=== PATIENT | female | born 1935 | race Caucasian/White ===

== ENCOUNTER 2017-05-04 16:40 | Emergency (ER) | payer MEDICARE, OTHER ==
--- NOTE | 2017-05-04 18:06 | RAD ---
CT head without contrast. CT cervical spine without contrast TECHNIQUE: 5 m axial noncontrast imaging skull base to vertex. Helical noncontrast imaging of the cervical spine. HISTORY: Fall, headache, neck pain. CT head findings: Generalized brain atrophy. Cerebral white matter hypoattenuation likely chronic microvascular ischemic gliosis. No intracranial hemorrhage, mass, hydrocephalus, extra-axial fluid collections or infarction. Right occipital scalp soft tissue swelling. Orbits, paranasal sinuses, mastoids and bones are unremarkable. Sphenoid sinus fluid. IMPRESSION: No acute intracranial CT abnormality. Sphenoid sinus fluid could be sinusitis. CT cervical spine findings: Streak artifact from dental hardware through the upper cervical spine may decrease sensitivity to detect subtle hairline fractures of the C1 and C2 levels however diagnostic information still remains. Craniocervical junction intact. C1-C2 articulation and C2 odontoid intact. Osteoarthritis of the C1-C2 articulation is present. Cervical vertebral body height and alignment intact. Subtle T2 vertebral body transverse linear sclerotic focus and mild deformity of the superior endplate without a lucent fracture cleft. This could represent an age-indeterminate T2 compression fracture. No fracture of the cervical spine. Scattered disc bulges and protrusions with probable severe spinal canal stenosis may increase the risk of spinal cord impingement at C3-C4 due to large disc protrusion. Multilevel neural foraminal stenoses. Hypervascular left thyroid lobe nodule measuring 3 cm. Lung apices unremarkable. IMPRESSION: 1. No acute osseous injury of the cervical spine. 2. Cervical disc disease as described above. 3. Age-indeterminate mild compression fracture of the T2 vertebral body as described above. 4. 3 cm hypervascular left thyroid lobe nodule. Neoplasm is not excluded. Exposure: One or more of the following individualized dose reduction techniques were utilized for this examination: 1. Automated exposure control 2. Adjustment of the mA and/or kV according to patient size 3. Use of iterative reconstruction technique Electronically signed by: Jose Richardson MD (05/04/2017 6:03 PM) [facility]
[2017-05-04] MEDS ORDERED: DIPHTH,PERTUSS(ACELL),TET TOX 0.5 ML DISP.SYRIN. VAX IM ONE (18:25)
[2017-05-04 18:45] LABS: BILIRUBIN,URINE NEG (NEG); CLARITY,URINE HAZY; COLOR,URINE YELLOW; GLUCOSE,URINE NEG (NEG); UROBILINOGEN,URINE 0.2 mg/dL (0.2 mg/dL)
[2017-05-04 18:46] LABS: BACTERIA,URINE MANY /HPF (0-FEW); NITRITE,URINE NEG (NEG); SQUAMOUS EPITHELIAL CELL,UR FEW /LPF; WBC,URINE >40 /HPF (0-4)
--- NOTE | 2017-05-04 20:20 | PHYS DOC ---
Past History Past Medical History: CAD, Constipation, Depression, UTI, Other Adult General Chief Complaint Chief Complaint: MECHANICAL FALL HPI HPI 81-year-old female lives in assisted living and walks with a walker now brought in by EMS after a fall from standing. Patient leaned over too far and fell striking her right scalp and right buttock. She has some mild neck soreness. No loss of consciousness. She's been at her baseline mental status since. She does have some scalp swelling. Patient suffered a skin tear right forearm and her tetanus is not up-to-date. She has previously fractured right shoulder in the distant past but did not injure that area today. Her left shoulder is sore from the fall. She has no chest pain or shortness of breath. No abdominal pain or spinal pain. No extremity injury Review of Systems Review of Systems Constitutional: Denies fever or chills [] Eyes: Denies change in visual acuity, redness, or eye pain [] HENT: Denies nasal congestion or sore throat [] Respiratory: Denies cough or shortness of breath [] Cardiovascular: No additional information not addressed in HPI [] GI: Denies abdominal pain, nausea, vomiting, bloody stools or diarrhea [] : Denies dysuria or hematuria [] Musculoskeletal: Denies back pain or joint pain [] Integument: Denies rash or skin lesions [] Neurologic: Denies headache, focal weakness or sensory changes [] Endocrine: Denies polyuria or polydipsia [] Current Medications Current Medications Current Medications Medications (Trade) Dose Ordered Sig/William Start Time Stop Time Status Last Admin Dose Admin Diphtheria/ Tetanus/Acell Pertussis (Boostrix) 0.5 ml ONCE ONCE 05/04/17 18:25 05/04/17 18:26 DC 05/04/17 18:29 0.5 ML Allergies Allergies Allergies Coded Allergies Type Severity Reaction Last Updated Verified Penicillins Allergy Unknown 05/04/17 Yes Sulfa (Sulfonamide Antibiotics) Allergy Unknown 05/04/17 Yes aspirin Allergy Unknown 05/04/17 Yes cefdinir Allergy Unknown 05/04/17 Yes ciprofloxacin Allergy Unknown 05/04/17 Yes sulfamethoxazole Allergy Unknown 05/04/17 Yes tramadol Allergy Unknown 05/04/17 Yes trimethoprim Allergy Unknown 05/04/17 Yes Physical Exam Physical Exam Normocephalic no bony tenderness or crepitus. Soft tissue swelling with hematoma right scalp. No Esteban sign. No facial tenderness or instability. Nontender C-spine with normal painless range of motion. No chest wall tenderness no spinal tenderness nontender stable pelvis. Mild buttock soft tissue tenderness with no ecchymosis or hematoma. No sacral or coccyx tenderness. Normal extremities with painless range of motion except mild soft tissue tenderness left shoulder area but no swelling ecchymosis or bony tenderness Constitutional: Well developed, well nourished, no acute distress, non-toxic appearance. [] HENT: Normocephalic, as above bilateral external ears normal, oropharynx moist, no oral exudates, nose normal. [] Eyes: PERRLA, EOMI, conjunctiva normal, no discharge. [] Neck: Normal range of motion, no tenderness, supple, no stridor. [] Cardiovascular:Heart rate regular rhythm, no murmur [] Lungs & Thorax: Bilateral breath sounds clear to auscultation [] Abdomen: Bowel sounds normal, soft, no tenderness, no masses, no pulsatile masses. [] Skin: Warm, dry, no erythema, no rash. [] Back: No tenderness, no CVA tenderness. [] Extremities: No tenderness, no cyanosis, no clubbing, ROM intact, no edema. [] Neurologic: Alert and oriented X 3, normal motor function, normal sensory function, no focal deficits noted. [] Psychologic: Affect normal, judgement normal, mood normal. [] Current Patient Data Vital Signs Vital Signs Date Time Temp Pulse Resp B/P (MAP) Pulse Ox O2 Delivery O2 Flow Rate FiO2 05/04/17 18:03 93 18 107/51 (69) 97 05/04/17 16:40 98.3 Room Air Lab Results Laboratory Tests Test 05/04/17 17:55 Urine Collection Type U cath Urine Color Yellow Urine Clarity Hazy Urine pH 5.5 Urine Specific [place] <=1.005 Urine Protein Neg (NEG-TRACE) Urine Glucose (UA) Neg mg/dL (NEG) Urine Ketones (Stick) Neg mg/dL (NEG) Urine Blood Mod (NEG) Urine Nitrite Neg (NEG) Urine Bilirubin Neg (NEG) Urine Urobilinogen Dipstick 0.2 mg/dL (0.2 mg/dL) Urine Leukocyte Esterase Large (NEG) Urine RBC 11-20 /HPF (0-2) Urine WBC >40 /HPF (0-4) Urine Squamous Epithelial Cells Few /LPF Urine Bacteria Many /HPF (0-FEW) EKG EKG [] Radiology/Procedures Radiology/Procedures Chest x-ray chronic changes previous right shoulder fracture no acute disease. Interpreted by me Left shoulder x-ray chronic changes no fracture no acute disease interpreted by me[] X-ray of pelvis chronic changes no acute disease no displaced fracture interpreted by me Course & Med Decision Making Course & Med Decision Making Pertinent Labs and Imaging studies reviewed. (See chart for details) Signs and symptoms consistent with closed head injury with scalp hematoma. Ice applied. Skin tear right forearm. Tetanus updated with T gap. No spinal tenderness. X-rays of left shoulder negative and mild soft tissue tenderness consistent with contusion. She has normal range of motion felt difficulty on reexam. Right shoulder has an old fracture visible on the chest x-ray, of which patient is aware and is not hurting at all today. Chest and pelvis x-rays unremarkable interpreted by me. On reevaluation patient continues to be extremely cheerful smiling normal and painless use and range of motion of her neck.. Incidental finding of left thyroid lobe nodule 3 cm noted on the CAT scan. Was a hypervascular lesion and radiology, neoplasm is not excluded. This was discussed at length with patient and her family and they're aware to follow- up with her primary care doctor to work a straight further workup and definitive diagnosis for treatment as needed. Family and patient are specifically where the possibility of cancer in the critical importance of close follow-up. No further workup or treatment indicated at this time patient and family agree with outpatient follow-up and strict return precautions given. copy of CT results dispensed w pt/family. Dragon Disclaimer Dragon Disclaimer This chart was dictated in whole or in part using Voice Recognition software in a busy, high-work load, and often noisy Emergency Department environment. It may contain unintended and wholly unrecognized errors or omissions. Departure Departure: Impression: Primary Impression: Closed head injury Additional Impressions: Scalp hematoma Cervical strain Thyroid mass of unclear etiology Multiple contusions Skin tear Urinary tract infection Referrals: KEILA OLIVER (PCP) Patient Instructions: Head Injury, Adult Additional Instructions: You've suffered a minor head injury from her fall today. It appears he also have some mild neck strain so be aware your neck may be mildly sore. He did not have any signs of injury to or bleeding of your brain. CAT scan showed no signs of fracture of your neck. Your x-rays of the chest and left shoulder showed no signs of fracture but on the chest [id number] right shoulder fracture was visible. Thankfully you did not injure this area today so further imaging was not necessary. He did have a hematoma of your scalp which means swelling and bleeding in the scalp. Apply ice to this as often as possible for the next day. You have evidence of other mild contusions including her left shoulder area and your buttock. X-ray of your pelvis was unremarkable and you have no signs of fracture in that area. As we discussed at length, the CAT scan of your neck did show a 3 cm mass of your left thyroid lobe. I have given you a copy of your CAT scan results regarding this mass so that you can follow-up with your primary care doctor to plan further workup for definitive diagnosis specifically to rule out the possibility of cancer. Be sure to follow up promptly and go through the steps prescribed to get this fully evaluated. Your urinalysis is consistent with infection. We've given you a prescription for Macrobid and you been given your first dose already tonight. As I'm sure your aware, Macrobid is a medicine you take twice a day in this case for 14 days. A urine culture will be pending which your doctor can follow to determine sensitivity and guide continued treatment. Return immediately for new severe or worsening symptoms Scripts Nitrofurantoin Monohyd/M-Cryst (MACROBID 100 MG CAPSULE) 100 Mg Capsule 1 CAP PO BID for 14 Days, #28 CAP Prov: DEVORAH RICHARDSON MD 05/04/17 Problem Qualifiers DEVORAH RICHARDSON MD May 04, 2017 20:20
[2017-05-04] MEDS ORDERED: NITR100C62 PO (20:44)
[2017-05-04] MEDS ORDERED: NITROFURANTOIN MONOHYD/M-CRYST 100 MG CAPSULE. PO ONE (21:00)
[2017-05-04 21:15] VITALS: BP 113/54
--- NOTE | 2017-05-05 08:56 | RAD ---
Portable left shoulder, 3 views, 05/04/2017: History: Fall, injury The bony structures are demineralized. No fracture or dislocation is identified. Mild degenerative changes are noted. IMPRESSION: No acute bony abnormality is detected.
--- NOTE | 2017-05-05 09:00 | RAD ---
Pelvis, single view, 05/04/2017: History: Fall, pain The bony structures are demineralized. No fracture is identified. The hip joints are well-maintained with only mild marginal spurring. Moderate degenerative change is noted in the lower lumbar spine. IMPRESSION: 1. Demineralization. 2. No acute bony abnormality is detected.
--- NOTE | 2017-05-05 09:43 | RAD ---
AP chest, 05/04/2017: History: Fall The heart size and pulmonary vascularity are normal. No pulmonary infiltrates are seen. There is no evidence of pleural fluid or pneumothorax. Moderate spurring is present in the spine. IMPRESSION: No acute cardiopulmonary abnormality is detected.
== END 2017-05-04 21:30 | disposition home or self-care (01) ==
LOC: ER 16:40
DX: S00.03XA Contusion of scalp, initial encounter (principal); S16.1XXA Strain of muscle, fascia and tendon at neck level, initial encounter; S40.012A Contusion of left shoulder, initial encounter; S30.0XXA Contusion of lower back and pelvis, initial encounter; E07.9 Disorder of thyroid, unspecified; I25.10 Atherosclerotic heart disease of native coronary artery without angina pectoris; N39.0 Urinary tract infection, site not specified; Z88.0 Allergy status to penicillin; Z88.2 Allergy status to sulfonamides; Z88.1 Allergy status to other antibiotic agents; W18.09XA Striking against other object with subsequent fall, initial encounter; Y93.89 Activity, other specified; Y99.8 Other external cause status; Y92.89 Other specified places as the place of occurrence of the external cause
CPT/HCPCS: 51702; 70450; 71010; 72125; 72170; 73030; 81001; 87086; 87186; 90471; 90715; 99285-25

== ENCOUNTER 2018-08-20 10:00 | Inpatient (IN) | payer MEDICARE, OTHER ==
[~2018-08-20] VITALS: Ht 149.9 cm; Wt 76.7 kg
[~2018-08-20 10:00] MED LIST: NITR100C62 PO
[2018-08-20 11:05] VITALS: BP 112/52
[2018-08-20 11:09] VITALS: BP 95/60
[2018-08-20 11:11] VITALS: BP 87/45
[2018-08-20] MEDS ORDERED: LIDO700A39 TP (11:39)
[2018-08-20] MEDS ORDERED: SERT100T PO (11:39)
[2018-08-20] MEDS ORDERED: GABA-585 PO (11:39)
[2018-08-20] MEDS ORDERED: BUME2TAB PO (11:39)
[2018-08-20] MEDS ORDERED: SPIR100T4 PO (11:39)
[2018-08-20] MEDS ORDERED: PANT40TA5 PO (11:39)
[2018-08-20] MEDS ORDERED: MIRT30TA PO (11:39)
[2018-08-20] MEDS ORDERED: ERGO500027 PO (12:37)
[2018-08-20] MEDS ORDERED: ONDA4TAB7 PO (12:37)
[2018-08-20] MEDS ORDERED: LOPE2CAP PO (12:37)
[2018-08-20] MEDS ORDERED: BUDE3CAP15 PO (12:37)
[2018-08-20] MEDS ORDERED: DICL100G18 TP (12:37)
[2018-08-20] MEDS ORDERED: ACET500T68 PO (12:37)
[2018-08-20] MEDS ORDERED: TRIA15CR50 TP (12:37)
[2018-08-20] MEDS ORDERED: LORA10TA3 PO (12:47)
[2018-08-20] MEDS ORDERED: NYST15CR TP (12:47)
[2018-08-20] MEDS ORDERED: METO2.5T PO (12:47)
[2018-08-20] MEDS ORDERED: MULT-245 PO (12:47)
[2018-08-20] MEDS ORDERED: FLUT15.88 NS (12:47)
[2018-08-20] MEDS ORDERED: RIVA10TA PO (12:47)
[2018-08-20 14:19] LABS: BILIRUBIN,URINE NEG (NEG); CLARITY,URINE TURBID; COLOR,URINE STRAW; GLUCOSE,URINE NEG (NEG); NITRITE,URINE POS (NEG); UROBILINOGEN,URINE 0.2 mg/dL (0.2 mg/dL)
[2018-08-20 14:20] LABS: BACTERIA,URINE MOD /HPF (0-FEW); SQUAMOUS EPITHELIAL CELL,UR OCC /LPF; WBC,URINE >40 /HPF (0-4)
[2018-08-20 14:32] LABS: HEMATOCRIT 30.1 % (36.0-47.0); HEMOGLOBIN 9.1 g/dL (12.0-15.5); RED BLOOD COUNT 3.71 x10^6/uL (3.50-5.40); RED CELL DISTRIBUTION WIDTH 18.9 % (11.5-14.5)
[2018-08-20 14:50] LABS: ALBUMIN 2.7 g/dL (3.4-5.0); ALBUMIN/GLOBULIN RATIO 0.6 (1.0-1.7); CALCIUM 8.9 mg/dL (8.5-10.1); CREATININE 1.9 mg/dL (0.6-1.0); GFR 25.3; POTASSIUM 4.3 mmol/L (3.5-5.1); TOTAL BILIRUBIN 0.3 mg/dL (0.2-1.0); TOTAL PROTEIN 7.2 g/dL (6.4-8.2)
[2018-08-20] MEDS ORDERED: ACETAMINOPHEN 500 MG TABLET PO PRN (15:00)
[2018-08-20] MEDS ORDERED: NYSTATIN 100,000 UNIT/GM TOPICAL CREAM 15GM TUBE. TP PRN (15:15)
[2018-08-20] MEDS ORDERED: NYSTATIN/TRIAMCIN TOPICAL CREAM 15GM TUBE. TP PRN (15:15)
[2018-08-20] MEDS ORDERED: LOPERAMIDE 2 MG CAPSULE PO PRN (15:15)
[2018-08-20] MEDS ORDERED: TRIAMCINOLONE ACETONIDE 0.1% TOPICAL CREAM 15GM TUBE. TP PRN (15:15)
[2018-08-20] MEDS: IV NORMAL SALINE 1,000ML 1,000 ML IV SCH (15:45)
[2018-08-20 16:09] VITALS: BP 106/68
[2018-08-20] MEDS: DICLOFENAC SODIUM 1% TOPICAL GEL 100GM TUBE. TP SCH ×2 (17:00→22:11)
--- NOTE | 2018-08-20 17:40 | HP ---
ADMIT DATE: 08/20/2018 HISTORY OF PRESENT ILLNESS: The patient is an 82-year-old female patient who was admitted directly from [facility] as she had had recurrent witnessed syncopal episode. The patient has severe bilateral lower extremity edema and she was on Bumex and metolazone as well as spironolactone and apparently, she became clinically dehydrated, although we stopped the diuretics. She continued to have a syncopal episode; in fact, it was a witnessed event by the nursing staff here. When she was admitted, she had positive postural hypertension. She has also noted to have a gluteal decubitus ulcer with marked maceration of the foot, gluteal, sacral, perianal area. She has a history of DVT and PE, she is on Xarelto. She has actually had acute blood loss anemia with a hemoglobin that dropped down to 6.5 and was admitted to [facility] at the end of July, where she has received 1 unit of packed RBCs. The patient denied any chest pain, palpitation, or dizziness, but apparently according to nursing staff, whenever she stands up, she just become unconscious and has to be put back on the bed. She was admitted directly and we did actually check her labs and showed that her BUN and creatinine has definitely risen as her baseline. Her BUN is 53, creatinine 1.9. PAST MEDICAL HISTORY: Showed that the patient is known to have Crohn's disease, degenerative joint disease, recurrent UTIs, history of deep vein thrombosis, pulmonary embolism, depression. She is known also to have L4 compression fracture and actually admitted here to [facility], but she was not found to be suitable for vertebroplasty by the neurosurgeon and interventional radiologist. PAST SURGICAL HISTORY: Significant for appendectomy, cholecystectomy, partial colectomy, colonoscopy, and biopsy. ALLERGIES: SHE IS ALLERGIC TO CIPRO, ASPIRIN, CEFDINIR, PENICILLIN, SULFA, AND TRAMADOL. MEDICATIONS: She is currently on following medications: She is on loratadine 10 mg once a day, nitrofurantoin 100 mg twice a day; rivaroxaban 10 mg, she takes 1-1/2 tablet daily; spironolactone 100 mg daily, diclofenac sodium 100 g 4 times a day, acetaminophen 1000 mg 3 times a day, gabapentin 100 mg at bedtime, mirtazapine 30 mg at bedtime, sertraline 100 mg daily, bumetanide 2 mg daily, metolazone 2.5 mg 3 times a week. She is on Flonase 2 sprays to each nostril once a day. She is also on loperamide 2 mg daily. She is on ondansetron 4 mg every 8 hours, Protonix 40 mg daily, Entocort extended release enteric coated 3 capsules p.o. daily. She is on nystatin cream apply topically 3 times a day, triamcinolone acetonide 15 g applied topically daily, lidocaine 1 patch daily, vitamin D 50,000 international unit once a week. She is on multivitamin 1 tablet daily. FAMILY HISTORY: Positive for hypertension and CVA in her mother and bone cancer in her father. SOCIAL HISTORY: She lives alone. In fact, she was at an assisted living facility; however, she is now in the long-term side of [facility]. She has 2 sons, one of them lives here and the other lives in [place], [place]. She does not smoke, drink alcohol, or use any recreational drugs and she is mostly bed bound, wheelchair bound. REVIEW OF SYSTEMS: As per history of present illness. PHYSICAL EXAMINATION GENERAL: When I examined her today, she was pale, but no jaundice, cyanosis, or thyromegaly. No jugular venous distention. No lower limb edema. VITAL SIGNS: Her heart rate was 92, blood pressure was 112/52 and that dropped down to 95/60 sitting and standing it dropped further to 87/45. Her temperature was 98.5, respiratory rate was 20, and oxygen saturation was 97% on 2 liters of oxygen. HEAD, EYES, EARS, NOSE, THROAT: Showed normocephalic, atraumatic. NECK: Supple. HEART: Showed normal first and second heart sounds with no gallop, rub or murmur. CHEST: Clear to auscultation. No crepitation or rhonchi. ABDOMEN: Distended, soft, nontender. No guarding or rigidity. No organomegaly. All hernial orifices are intact. Bowel sounds normal. NEUROLOGIC: She was awake, alert, responding appropriately. All cranial nerves are intact. EXTREMITIES: She moves her extremities without difficulty. She is mostly bed bound, wheelchair bound. SKIN: She has decubitus ulcer on the left gluteal area together with maceration of the skin of both the gluteal and sacrococcygeal area. LABORATORY WORK: Showed a white cell count of 12,000, hemoglobin 9.1, hematocrit 30, MCV 81, and platelet count of 468,000. Her chemistry showed a serum sodium 139, potassium 4.3, chloride 97, bicarbonate 32, anion gap of 10, BUN of 53, creatinine 1.9, estimated GFR was 25 mL per minute. Her glucose was 205, calcium was 8.9. Total bilirubin, AST, ALT normal. Alkaline phosphatase slightly elevated. Total protein 7.2, albumin 2.7. Urinalysis showed the urine was yellow as straw color, turbid with a pH of 6.5, specific gravity of 1.015. The urine was negative for protein, glucose, ketones, moderate amount of blood, positive for nitrite. There was large amount of leukocyte esterase, 3-5 rbc's, more than 40 wbc's, and moderate amount of bacteria. IMPRESSION AND PLAN: In summary, this is an 82-year-old female patient who was admitted with recurrent episodes of syncope, likely due to over diuresis. She used to have marked bilateral lower extremity edema that has largely subsided. My plan is to send urine for culture and sensitivity. We will arrange for her to have started with a human albumin 3 times a day and also gentle hydration with normal saline at 75 mL per hour. Her H and H is ____ 9.1 and 30 most likely due to hemoconcentration. We will continue with Xarelto. I held all her diuretics including spironolactone. We will check her orthostatic on a daily basis and her lab work also. We will consult the wound care team as well as physical and occupational therapy. LOREN HILARIO MD DR: JAQUELIN/rhys JOB#: [id number] / [id number]
[2018-08-20 20:00] VITALS: BP 93/51
[2018-08-20] MEDS: ALBUMIN HUMAN 25% 50 ML IV SCH (21:49)
[2018-08-20] MEDS: GABAPENTIN 100 MG CAPSULE. PO SCH (21:57)
[2018-08-20] MEDS: NITROFURANTOIN MONOHYD/M-CRYST 100 MG CAPSULE. PO SCH (21:59)
[2018-08-20] MEDS: MIRTAZAPINE 30 MG TABLET PO SCH (21:59)
[2018-08-20 23:04] VITALS: BP 118/72
[2018-08-21] MEDS: IV NORMAL SALINE 1,000ML 1,000 ML IV SCH ×2 (05:06→15:32)
[2018-08-21 06:29] VITALS: BP 100/64
[2018-08-21 06:41] LABS: HEMATOCRIT 24.8 % (36.0-47.0); HEMOGLOBIN 7.8 g/dL (12.0-15.5); RED BLOOD COUNT 3.06 x10^6/uL (3.50-5.40); WHITE BLOOD COUNT 7.9 x10^3/uL (4.0-11.0)
[2018-08-21 06:48] LABS: ALBUMIN 2.6 g/dL (3.4-5.0); ALBUMIN/GLOBULIN RATIO 0.7 (1.0-1.7); CALCIUM 8.3 mg/dL (8.5-10.1); CREATININE 1.6 mg/dL (0.6-1.0); GFR 30.9; POTASSIUM 3.8 mmol/L (3.5-5.1); TOTAL BILIRUBIN 0.2 mg/dL (0.2-1.0); TOTAL PROTEIN 6.2 g/dL (6.4-8.2)
[2018-08-21] MEDS: MULTIVITAMIN with MINERAL TABLET. PO SCH (08:13)
[2018-08-21] MEDS: NITROFURANTOIN MONOHYD/M-CRYST 100 MG CAPSULE. PO SCH ×2 (08:14→22:42)
[2018-08-21] MEDS: RIVAROXABAN 10 MG TABLET. PO SCH (08:14)
[2018-08-21] MEDS: PANTOPRAZOLE 40 MG TABLET. PO SCH (08:15)
[2018-08-21] MEDS: ASCORBIC ACID 500 MG TABLET PO SCH (08:15)
[2018-08-21] MEDS: SERTRALINE 100 MG TABLET. PO SCH (08:15)
[2018-08-21] MEDS: LIDOCAINE (700MG/PATCH) PATCH. TD SCH (08:17)
--- NOTE | 2018-08-21 08:48 | PDOC2 ---
CONSULT Date of Admission DATE: 08/21/18 TIME: 08:44 Reason for Consult: syncope History of Present Illness Ms Michele is an 82 year old female who is admitted with recurrent episodes of syncope. She has additional history of acute renal insufficiency secondary to dehydration, orthostatic hypotension, anemia with recent workup for GIB, and prior history of DVT/PE on anticoagulation. She was being managed for significant lower extremity edema with multiple diuretics and became clinically dehydrated. Diuretics were held but she continued to have orthostatic hypotension and syncopal episodes so was admitted to the hospital for management and consult was called. She reports lightheadedness on standing, denies chest discomfort, dyspnea or palpitations. She reports edema though improved. she denies congestive symptoms. She does report he lightheadedness is improving but this am has complaints of nausea. Past Medical History Crohn's disease, degenerative joint disease, recurrent UTIs, history of deep vein thrombosis, pulmonary embolism, depression, L4 compression fracture not suitable for vertebroplasty, DVT/PE > 6months ago, hypertension, GERD, pneumonia , chronic renal insufficiency, anemia, hemorrhoids Past Surgical History appendectomy, cholecystectomy, partial colectomy, colonoscopy, and biopsy Family History hypertension and CVA in her mother and bone cancer in her father. Social History She lived alone previously at an assisted living facility until recently moved to [facility]. non smoker, no Alcohol, or recreational drugs mostly wheelchair and bed bound but does get up with PT Current Medications Current Medications Diclofenac Sodium (Voltaren) 1 dev QID TP Last administered on 08/20/18at 22:11; Start 08/20/18 at 17:00 Gabapentin (Neurontin) 100 mg HS PO Last administered on 08/20/18at 21:57; Start 08/20/18 at 21:00 Mirtazapine (Remeron) 30 mg QHS PO Last administered on 08/20/18at 21:59; Start 08/20/18 at 21:00 Rivaroxaban (Xarelto) 15 mg DAILY PO Last administered on 08/21/18at 08:14; Start 08/21/18 at 09:00 Sertraline HCl (Zoloft) 100 mg DAILY PO Last administered on 08/21/18at 08:15; Start 08/21/18 at 09:00 Acetaminophen (Tylenol) 1,000 mg PRN TID PRN PO PAIN; Start 08/20/18 at 15:00 Budesonide (Entocort) 9 mg DAILY PO ; Start 08/21/18 at 09:00 Vitamin D (Vitamin D3) 50,000 unit WEEKLY PO ; Start 08/27/18 at 09:00 Fluticasone Propionate (Flonase) 2 spray PRN BID PRN NS ALLERGIES; Start at 09:00 Lidocaine (Lidoderm) 1 patch DAILY TD Last administered on 08/21/18at 08:17; Start 08/21/18 at 09:00 Loperamide HCl (Imodium) 2 mg PRN Q15MIN PRN PO DIARRHEA; Start 08/20/18 at 15: 15 Multivitamins/ Calcium (Thera-M Plus) 1 tab DAILY PO Last administered on at 08:13; Start 08/21/18 at 09:00 Nitrofurantoin Macrocrystals (Macrobid) 100 mg BID PO Last administered on at 08:14; Start 08/20/18 at 21:00 Nystatin/ Triamcinolone Acetonide (Mycolog Ii) 1 dev PRN TID PRN TP YEASTY RASH ; Start 08/20/18 at 15:15; Status Cancel Ondansetron HCl (Zofran Odt) 4 mg Q8HRS PRN PO NAUSEA/VOMITING; Start 08/20/18 at 15:15 Pantoprazole Sodium (Protonix) 40 mg DAILYAC PO Last administered on 08/21/18at 08:15; Start 08/21/18 at 07:30 Spironolactone (Aldactone) 100 mg DAILY PO ; Start 08/21/18 at 09:00; Stop at 09:00; Status DC Triamcinolone Acetonide (Kenalog) 1 dev DAILY PRN TP FACIAL ITCHING; Start 08/20 at 15:15 Nystatin (Mycostatin) 1 dev PRN TID PRN TP YEASTY RASH; Start 08/20/18 at 15:15 Albumin Human 50 ml @ 50 mls/hr TID IV Last administered on 08/20/18at 21:49; Start 08/20/18 at 21:00 Sodium Chloride 1,000 ml @ 75 mls/hr [id number] IV Last administered on 08/21/18at 05:06; Start 08/20/18 at 15:45 Ascorbic Acid (Vitamin C) 500 mg DAILY PO Last administered on 08/21/18at 08:15; Start 08/21/18 at 09:00 Vitamin A/Vitamin D (Vitamin A & D Ointment) 1 dev BID TP ; Start 08/21/18 at 09: 00 Active Scripts Active Macrobid 100 Mg Capsule (Nitrofurantoin Monohyd/M-Cryst) 100 Mg Capsule 1 Cap PO BID 14 Days Reported Xarelto (Rivaroxaban) 10 Mg Tablet 1.5 Tab PO DAILY Metolazone 2.5 Mg Tablet 2.5 Mg PO 3X/WEEK Fluticasone Propionate 15.8 Ml [place].susp 15.8 Ml NS BID PRN Loratadine 10 Mg Tablet 1 Tab PO DAILY PRN Multi Vitamin Daily (Multivitamin) 1 Each Tablet 1 Each PO DAILY Nystatin 15 Gm Cream..g. 1 Dev TP TID PRN Acetaminophen 500 Mg Tablet 2 Tab PO TID PRN Entocort Ec (Budesonide) 3 Mg Capdr...er 3 Cap PO DAILY Voltaren (Diclofenac Sodium) 100 Gm Gel..gram. 1 Gm TP QID Zofran (Ondansetron Hcl) 4 Mg Tablet 1 Tab PO Q8HRS PRN Triamcinolone Acetonide 15 Gm Cream..g. 1 Dev TP DAILY PRN Vitamin D2 (Ergocalciferol (Vitamin D2)) 50,000 Unit Capsule 1 Cap PO WEEKLY Loperamide (Loperamide Hcl) 2 Mg Capsule 1 Mg PO DAILY PRN Gabapentin (Gabapentin) 100 Mg Capsule 100 Mg PO HS Lidocaine 1 Each Adh..patch 1 Each TP DAILY Bumetanide 2 Mg Tablet 1 Tab PO DAILY Spironolactone 100 Mg Tablet 1 Tab PO DAILY Zoloft (Sertraline Hcl) 100 Mg Tablet 1 Tab PO DAILY Remeron (Mirtazapine) 30 Mg Tablet 1 Tab PO QHS Pantoprazole Sodium 40 Mg Tablet.dr 1 Tab PO DAILY Allergies: Coded Allergies: Penicillins (Verified Allergy, Unknown, 05/04/17) Sulfa (Sulfonamide Antibiotics) (Verified Allergy, Unknown, 05/04/17) aspirin (Verified Allergy, Unknown, 05/04/17) cefdinir (Verified Allergy, Unknown, 05/04/17) ciprofloxacin (Verified Allergy, Unknown, 05/04/17) sulfamethoxazole (Verified Allergy, Unknown, 05/04/17) tramadol (Verified Allergy, Unknown, 05/04/17) trimethoprim (Verified Allergy, Unknown, 05/04/17) Review of System as per HPI, below, or negative General: YES: Fatigue, Malaise Hematological and Lymphatic: YES: Blood Clots Cardiovascular: yes: Lt Headedness Gastrointestinal: YES: Nausea, Melena, Other (hemorrhoids) Musculoskeletal: YES: Gait Disturbance, Muscular Weakness, Swelling In: (both lower extremitits) Neurological: YES: Dizziness, Weakness Skin: YES: Dry Skin, Rash, Other (venous stasis changes, sacral decubitis ) General: Alert, Oriented X3, Cooperative, No acute distress HEENT: Atraumatic, EOMI Lungs: Other (bilateral basilar crackles, right>left) Heart: Normal S1, Normal S2, Other (no gallops, clicks or rubs) Abdomen: Normal bowel sounds Extremities: No cyanosis, Other (+1 edema and chronic venous stasis changes) Neuro: Normal speech Psych/Mental Status: Mental status NL, Mood NL VITALS Vital Signs Date Time Temp Pulse Resp B/P (MAP) Pulse Ox O2 Delivery O2 Flow Rate FiO2 08/21/18 06:29 98.0 76 20 100/64 (76) 97 Nasal Cannula 2.0 Labs Laboratory Tests Test 08/20/18 13:30 08/20/18 13:45 08/20/18 14:20 08/21/18 06:07 Nasal Screen MRSA (PCR) Negative (Negative) Urine Collection Type Unknown Urine Color Straw Urine Clarity Turbid Urine pH 6.5 Urine Specific [place] 1.015 Urine Protein Neg (NEG-TRACE) Urine Glucose (UA) Neg mg/dL (NEG) Urine Ketones (Stick) Neg mg/dL (NEG) Urine Blood Mod (NEG) Urine Nitrite Pos (NEG) Urine Bilirubin Neg (NEG) Urine Urobilinogen Dipstick 0.2 mg/dL (0.2 mg/dL) Urine Leukocyte Esterase Large (NEG) Urine RBC 3-5 /HPF (0-2) Urine WBC >40 /HPF (0-4) Urine Squamous Epithelial Cells Occ /LPF Urine Transitional Epithelial Cells Occ /LPF Urine Bacteria Mod /HPF (0-FEW) White Blood Count 12.0 x10^3/uL (4.0-11.0) 7.9 x10^3/uL (4.0-11.0) Red Blood Count 3.71 x10^6/uL (3.50-5.40) 3.06 x10^6/uL (3.50-5.40) Hemoglobin 9.1 g/dL (12.0-15.5) 7.8 g/dL (12.0-15.5) Hematocrit 30.1 % (36.0-47.0) 24.8 % (36.0-47.0) Mean Corpuscular Volume 81 fL (79-100) 81 fL (79-100) Mean Corpuscular Hemoglobin 25 pg (25-35) 25 pg (25-35) Mean Corpuscular Hemoglobin Concent 30 g/dL (31-37) 31 g/dL (31-37) Red Cell Distribution Width 18.9 % (11.5-14.5) 19.0 % (11.5-14.5) Platelet Count 468 x10^3/uL (140-400) 407 x10^3/uL (140-400) Sodium Level 139 mmol/L (136-145) 139 mmol/L (136-145) Potassium Level 4.3 mmol/L (3.5-5.1) 3.8 mmol/L (3.5-5.1) Chloride Level 97 mmol/L (98-107) 100 mmol/L (98-107) Carbon Dioxide Level 32 mmol/L (21-32) 32 mmol/L (21-32) Anion Gap 10 (6-14) 7 (6-14) Blood Urea Nitrogen 53 mg/dL (7-20) 48 mg/dL (7-20) Creatinine 1.9 mg/dL (0.6-1.0) 1.6 mg/dL (0.6-1.0) Estimated GFR (Cockcroft-Gault) 25.3 30.9 BUN/Creatinine Ratio 28 (6-20) 30 (6-20) Glucose Level 205 mg/dL (70-99) 89 mg/dL (70-99) Calcium Level 8.9 mg/dL (8.5-10.1) 8.3 mg/dL (8.5-10.1) Total Bilirubin 0.3 mg/dL (0.2-1.0) 0.2 mg/dL (0.2-1.0) Aspartate Amino Transf (AST/SGOT) 21 U/L (15-37) 16 U/L (15-37) Alanine Aminotransferase (ALT/SGPT) 27 U/L (14-59) 22 U/L (14-59) Alkaline Phosphatase 120 U/L (46-116) 101 U/L (46-116) Total Protein 7.2 g/dL (6.4-8.2) 6.2 g/dL (6.4-8.2) Albumin 2.7 g/dL (3.4-5.0) 2.6 g/dL (3.4-5.0) Albumin/Globulin Ratio 0.6 (1.0-1.7) 0.7 (1.0-1.7) Assessment/Plan 1. Recurrent syncope in the setting of dehydration, anemia and orthostasis. Monitor on tele, correct fluid balance. Will check echo. 2. acute on chronic renal insufficiency secondary to dehydration and anemia - diuretics held, IVF per PCP 3. anemia - dilutional. recent GI workup at [facility] due to bleeding. Request records. 4. hx DVT/PE - on Xarelto, mgmt PCP 5. hypertension - remains orthostatic. Monitor orthostatic checks at least BID 6. chronic lower extremity edema - likely venous stasis. Compression hose and consider reflux study outpatient. LUCIA MILLAN APRN Aug 21, 2018 08:48
[2018-08-21] MEDS ORDERED: FLUTICASONE 50MCG/NASAL SPRAY 16GM BOTTLE. NS PRN (09:00)
[2018-08-21] MEDS ORDERED: SPIRONOLACTONE 25 MG TABLET PO SCH (09:00)
[2018-08-21] MEDS: BUDESONIDE 3 MG CAP.ER.24H. PO SCH (09:43)
[2018-08-21] MEDS: ALBUMIN HUMAN 25% 50 ML IV SCH ×3 (09:43→22:31)
[2018-08-21] MEDS: VITS A & D/LANOLIN TOPICAL OINTMENT 56GM TUBE. TP SCH ×2 (09:44→23:17)
[2018-08-21] MEDS: DICLOFENAC SODIUM 1% TOPICAL GEL 100GM TUBE. TP SCH ×4 (09:45→23:52)
[2018-08-21 11:01] VITALS: BP 103/64
[2018-08-21 15:16] VITALS: BP 111/66
[2018-08-21] MEDS: MEROPENEM 500 MG in IV NORMAL SALINE 50ML 50 ML IV SCH ×2 (15:31→23:18)
[2018-08-21 18:33] VITALS: BP 103/57
[2018-08-21] MEDS: MIRTAZAPINE 30 MG TABLET PO SCH (22:42)
[2018-08-21] MEDS: GABAPENTIN 100 MG CAPSULE. PO SCH (22:43)
[2018-08-21] MEDS: LACTOBACILLUS RHAMNOSUS GG 1 CAPSULE. PO SCH (22:43)
[2018-08-21 23:25] VITALS: BP 111/65
--- NOTE | 2018-08-21 23:29 | PN ---
DATE: 08/21/2018 SUBJECTIVE: The patient is resting, slightly propped up in bed, in no apparent distress. On questioning her, she denied any complaints. She apparently managed to sit in the chair today without fainting. Her blood pressure was stable without postural hypertension. PHYSICAL EXAMINATION: GENERAL: When I examined her, she was pale, but no jaundice, cyanosis, or thyromegaly. No jugular venous distention. No limb edema. VITAL SIGNS: Her heart rate was 78, blood pressure was 103/64, temperature was 98.1, respiratory rate 20 and oxygen saturation was 97% on 2 liters of oxygen by nasal cannula. HEAD, EYES, EARS, NOSE AND THROAT: Showed normocephalic, atraumatic. NECK: Supple. HEART: Showed normal first and second heart sounds with no gallop, rub or murmur. CHEST: Clear to auscultation. No crepitation or rhonchi. ABDOMEN: Distended, soft, nontender. NEUROLOGIC: She was awake, alert, responding appropriately. All cranial nerves are intact. She moves extremities without difficulty. She is mostly bedbound, chair bound. She was transferred from bed to chair without difficulty and managed to sit in the chair for a while without fainting. Her intake was 895 and no output was recorded. LABORATORY DATA: Her lab work this morning showed a serum sodium 139, potassium 3.8, chloride 100, bicarbonate 32, anion gap of 7, BUN 48, creatinine 1.6. Estimated GFR was 31 mL per minute. Her glucose was 89. Calcium was 8.3. Total bilirubin, AST, ALT, alkaline phosphatase were normal. Total protein was 6.2, albumin 2.6. White cell count was 7900, hemoglobin 7.8, hematocrit 24.8, MCV 81 and platelet count of 407,000. Her urinalysis showed that the urine was positive for nitrite with large amount of leukocyte esterase, 3-5 rbc's, more than 40 wbc's. ASSESSMENT: An 82-year-old female patient, who was admitted with recurrent episode of syncope, likely due to over diuresis. She used to have marked bilateral lower extremity edema that has largely subsided. We will continue holding her diuretics. Continue with gentle hydration. Continue with human albumin. Continue with physical and occupational therapy. Continue with wound care. LOREN IHLARIO MD DR: Keyur JOB#: [id number] / [id number]
[2018-08-22 05:01] VITALS: BP 115/69
[2018-08-22] MEDS: MEROPENEM 500 MG in IV NORMAL SALINE 50ML 50 ML IV SCH ×3 (05:38→22:02)
[2018-08-22 06:32] LABS: HEMATOCRIT 25.8 % (36.0-47.0); HEMOGLOBIN 8.1 g/dL (12.0-15.5)
[2018-08-22 06:44] LABS: CALCIUM 8.5 mg/dL (8.5-10.1); CREATININE 1.2 mg/dL (0.6-1.0); MAGNESIUM 1.7 mg/dL (1.8-2.4); POTASSIUM 3.7 mmol/L (3.5-5.1)
[2018-08-22] MEDS: IV NORMAL SALINE 1,000ML 1,000 ML IV SCH ×2 (07:45→22:02)
[2018-08-22] MEDS: RIVAROXABAN 10 MG TABLET. PO SCH (08:23)
[2018-08-22] MEDS: LIDOCAINE (700MG/PATCH) PATCH. TD SCH (08:23)
[2018-08-22] MEDS: LACTOBACILLUS RHAMNOSUS GG 1 CAPSULE. PO SCH ×2 (08:24→20:58)
[2018-08-22] MEDS: BUDESONIDE 3 MG CAP.ER.24H. PO SCH (08:24)
[2018-08-22] MEDS: SERTRALINE 100 MG TABLET. PO SCH (08:24)
[2018-08-22] MEDS: MULTIVITAMIN with MINERAL TABLET. PO SCH (08:24)
[2018-08-22] MEDS: NITROFURANTOIN MONOHYD/M-CRYST 100 MG CAPSULE. PO SCH ×2 (08:24→20:59)
[2018-08-22] MEDS: PANTOPRAZOLE 40 MG TABLET. PO SCH (08:24)
[2018-08-22] MEDS: ASCORBIC ACID 500 MG TABLET PO SCH (08:24)
[2018-08-22] MEDS: DICLOFENAC SODIUM 1% TOPICAL GEL 100GM TUBE. TP SCH ×4 (08:25→20:58)
[2018-08-22] MEDS: ALBUMIN HUMAN 25% 50 ML IV SCH ×3 (08:26→20:59)
[2018-08-22] MEDS: VITS A & D/LANOLIN TOPICAL OINTMENT 56GM TUBE. TP SCH ×2 (08:26→20:58)
--- NOTE | 2018-08-22 08:42 | CARD ---
MR#: [id number] Date of Study: 08/21/2018 Ordering Physician: LUCIA MILLAN, Referring Physician: LOREN HILARIO, Tech: Felicity Braden APPROVED REPORT EXAM: Two-dimensional and M-mode echocardiogram with Doppler and color Doppler. Other Information Quality : AverageHR: 88bpm INDICATION Syncope 2D DIMENSIONS Left Atrium(2D)3.2 (1.6-4.0cm)IVSd1.5 (0.7-1.1cm) Aortic Root(2D)3.0 (2.0-3.7cm)LVDd3.9 (3.9-5.9cm) LVOT Diameter2.1 (1.8-2.4cm)PWd1.0 (0.7-1.1cm) LVDs2.5 (2.5-4.0cm)FS (%) 37.5 % SV46.3 mlLVEF(%)68.2 (>50%) Aortic Valve AoV Peak Radhames.210.5cm/sAoV VTI43.3cm AO Peak GR.17.7mmHgLVOT Peak Radhames.161.2cm/s LVOT VTI 38.48cmAO Mean GR.11mmHg JAMES (VMAX)2.41li3DVF (VTI)3.03cm2 Mitral Valve MV E Ofpbavut103.3cm/sMV DECEL HUDG353qy MV A Jszsbbpe640.6cm/sE/A Ratio0.8 Pulmonary Valve PV Peak Ivdmgyya404.1cm/sPV Peak Grad.6mmHg Tricuspid Valve TR P. Maxherpj670jn/sRAP KTBHDECL4zwUp TR Peak Gr.54guPyETHZ68roRz Pulmonary Vein S1 Npnkzcwd38.3cm/sD2 Oqxghtfk27.7cm/s LEFT VENTRICLE The left ventricle is normal size. There is moderate concentric left ventricular hypertrophy. The lef t ventricular systolic function is normal. The Ejection Fraction is 60-65%. There is normal LV segmen mackenzie wall motion. Transmitral Doppler flow pattern is Grade I-abnormal relaxation pattern. RIGHT VENTRICLE The right ventricle is normal size. There is normal right ventricular wall thickness. The right ventr icular systolic function is normal. ATRIA The left atrium size is normal. The right atrium size is normal. The interatrial septum is intact wit h no evidence for an atrial septal defect or patent foramen ovale as noted on 2-D or Doppler imaging. AORTIC VALVE The aortic valve is thickened but opens well. Doppler and Color Flow revealed no significant aortic r egurgitation. There is no significant aortic valvular stenosis. . MITRAL VALVE The mitral valve is mildly to moderately thickened. There is no evidence of mitral valve prolapse. Do ppler and Color-flow revealed trace to mild mitral regurgitation. TRICUSPID VALVE The tricuspid valve is not well visualized. Doppler and Color Flow revealed trace tricuspid regurgita tion. There is no tricuspid valve stenosis. PULMONIC VALVE The pulmonic valve is not well visualized. Doppler and Color Flow revealed no pulmonic valvular regur gitation. GREAT VESSELS The aortic root is normal in size. The IVC was not visualized. PERICARDIAL EFFUSION There is no evidence of significant pericardial effusion. Critical Notification Critical Value: No <Conclusion> The left ventricular systolic function is normal. The Ejection Fraction is 60-65%. There is normal LV segmental wall motion. Trace to mild mitral regurgitation. Trace tricuspid regurgitation. There is no evidence of significant pericardial effusion. Signed by : Chris French, Electronically Approved : 08/22/2018 08:40:54
--- NOTE | 2018-08-22 08:58 | PDOC ---
PROGRESS NOTES Assessment 1. Recurrent syncope in the setting of dehydration, anemia and orthostasis. echo reveals normal LV function and wall motion. no significant VHD, No significant arrhythmias on tele. 2. acute on chronic renal insufficiency secondary to dehydration and anemia - diuretics held, IVF per PCP, cr improved 3. anemia - dilutional. recent GI workup at [facility] due to bleeding. Request records pending. Hgb remains stable. 4. hx DVT/PE - on Xarelto, mgmt PCP 5. hypertension - Monitor orthostatic pressures twice daily. 6. chronic lower extremity edema - likely venous stasis. Compression hose and consider reflux study outpatient. Stable CV hinds. Subjective c/o nausea, denies lightheadedness, chest pain or dyspnea Objective Vital Signs Date Time Temp Pulse Resp B/P (MAP) Pulse Ox O2 Delivery O2 Flow Rate FiO2 08/22/18 05:01 97.8 79 20 115/69 (84) 98 Nasal Cannula 2.0 Intake and Output 08/22/18 07:01 Intake Total 1150 ml Balance 1150 ml Intake Oral 1000 ml IV Total 150 ml # Voids 6 # Bowel Movements 1 Abdomen: Normal bowel sounds, Soft Heart: Normal S1, Normal S2 Extremities: Other (edema unchanged) General: Alert, Oriented X3, Cooperative, No acute distress Lungs: Clear to auscultation Psych/Mental Status: Mental status NL, Mood NL Review of Relevant I have reviewed the following items vito (where applicable) has been applied. Labs Laboratory Tests Test 08/20/18 13:30 08/20/18 13:45 08/20/18 14:20 08/21/18 06:07 Nasal Screen MRSA (PCR) Negative (Negative) Urine Collection Type Unknown Urine Color Straw Urine Clarity Turbid Urine pH 6.5 Urine Specific [place] 1.015 Urine Protein Neg (NEG-TRACE) Urine Glucose (UA) Neg mg/dL (NEG) Urine Ketones (Stick) Neg mg/dL (NEG) Urine Blood Mod (NEG) Urine Nitrite Pos (NEG) Urine Bilirubin Neg (NEG) Urine Urobilinogen Dipstick 0.2 mg/dL (0.2 mg/dL) Urine Leukocyte Esterase Large (NEG) Urine RBC 3-5 /HPF (0-2) Urine WBC >40 /HPF (0-4) Urine Squamous Epithelial Cells Occ /LPF Urine Transitional Epithelial Cells Occ /LPF Urine Bacteria Mod /HPF (0-FEW) White Blood Count 12.0 x10^3/uL (4.0-11.0) 7.9 x10^3/uL (4.0-11.0) Red Blood Count 3.71 x10^6/uL (3.50-5.40) 3.06 x10^6/uL (3.50-5.40) Hemoglobin 9.1 g/dL (12.0-15.5) 7.8 g/dL (12.0-15.5) Hematocrit 30.1 % (36.0-47.0) 24.8 % (36.0-47.0) Mean Corpuscular Volume 81 fL (79-100) 81 fL (79-100) Mean Corpuscular Hemoglobin 25 pg (25-35) 25 pg (25-35) Mean Corpuscular Hemoglobin Concent 30 g/dL (31-37) 31 g/dL (31-37) Red Cell Distribution Width 18.9 % (11.5-14.5) 19.0 % (11.5-14.5) Platelet Count 468 x10^3/uL (140-400) 407 x10^3/uL (140-400) Sodium Level 139 mmol/L (136-145) 139 mmol/L (136-145) Potassium Level 4.3 mmol/L (3.5-5.1) 3.8 mmol/L (3.5-5.1) Chloride Level 97 mmol/L (98-107) 100 mmol/L (98-107) Carbon Dioxide Level 32 mmol/L (21-32) 32 mmol/L (21-32) Anion Gap 10 (6-14) 7 (6-14) Blood Urea Nitrogen 53 mg/dL (7-20) 48 mg/dL (7-20) Creatinine 1.9 mg/dL (0.6-1.0) 1.6 mg/dL (0.6-1.0) Estimated GFR (Cockcroft-Gault) 25.3 30.9 BUN/Creatinine Ratio 28 (6-20) 30 (6-20) Glucose Level 205 mg/dL (70-99) 89 mg/dL (70-99) Calcium Level 8.9 mg/dL (8.5-10.1) 8.3 mg/dL (8.5-10.1) Total Bilirubin 0.3 mg/dL (0.2-1.0) 0.2 mg/dL (0.2-1.0) Aspartate Amino Transf (AST/SGOT) 21 U/L (15-37) 16 U/L (15-37) Alanine Aminotransferase (ALT/SGPT) 27 U/L (14-59) 22 U/L (14-59) Alkaline Phosphatase 120 U/L (46-116) 101 U/L (46-116) Total Protein 7.2 g/dL (6.4-8.2) 6.2 g/dL (6.4-8.2) Albumin 2.7 g/dL (3.4-5.0) 2.6 g/dL (3.4-5.0) Albumin/Globulin Ratio 0.6 (1.0-1.7) 0.7 (1.0-1.7) Test 08/22/18 06:10 Hemoglobin 8.1 g/dL (12.0-15.5) Hematocrit 25.8 % (36.0-47.0) Sodium Level 143 mmol/L (136-145) Potassium Level 3.7 mmol/L (3.5-5.1) Chloride Level 105 mmol/L (98-107) Carbon Dioxide Level 32 mmol/L (21-32) Anion Gap 6 (6-14) Blood Urea Nitrogen 26 mg/dL (7-20) Creatinine 1.2 mg/dL (0.6-1.0) Estimated GFR (Cockcroft-Gault) 43.0 Glucose Level 90 mg/dL (70-99) Calcium Level 8.5 mg/dL (8.5-10.1) Magnesium Level 1.7 mg/dL (1.8-2.4) Medications Current Medications Diclofenac Sodium (Voltaren) 1 dev QID TP Last administered on 08/22/18at 08:25; Start 08/20/18 at 17:00 Gabapentin (Neurontin) 100 mg HS PO Last administered on 08/21/18at 22:43; Start 08/20/18 at 21:00 Mirtazapine (Remeron) 30 mg QHS PO Last administered on 08/21/18at 22:42; Start 08/20/18 at 21:00 Rivaroxaban (Xarelto) 15 mg DAILY PO Last administered on 08/22/18 08:23; Start 08/21/18 at 09:00 Sertraline HCl (Zoloft) 100 mg DAILY PO Last administered on 08/22/18 08:24; Start 08/21/18 at 09:00 Acetaminophen (Tylenol) 1,000 mg PRN TID PRN PO PAIN Last administered on at 22:42; Start 08/20/18 at 15:00 Budesonide (Entocort) 9 mg DAILY PO Last administered on 08/22/18 08:24; Start 08/21/18 at 09:00 Vitamin D (Vitamin D3) 50,000 unit WEEKLY PO ; Start 08/27/18 at 09:00 Fluticasone Propionate (Flonase) 2 spray PRN BID PRN NS ALLERGIES; Start at 09:00 Lidocaine (Lidoderm) 1 patch DAILY TD Last administered on 08/22/18 08:23; Start 08/21/18 at 09:00 Loperamide HCl (Imodium) 2 mg PRN Q15MIN PRN PO DIARRHEA; Start 08/20/18 at 15: 15 Multivitamins/ Calcium (Thera-M Plus) 1 tab DAILY PO Last administered on 08:24; Start 08/21/18 at 09:00 Nitrofurantoin Macrocrystals (Macrobid) 100 mg BID PO Last administered on 08:24; Start 08/20/18 at 21:00 Nystatin/ Triamcinolone Acetonide (Mycolog Ii) 1 dev PRN TID PRN TP YEASTY RASH ; Start 08/20/18 at 15:15; Status Cancel Ondansetron HCl (Zofran Odt) 4 mg Q8HRS PRN PO NAUSEA/VOMITING; Start 08/20/18 at 15:15 Pantoprazole Sodium (Protonix) 40 mg DAILYAC PO Last administered on 08/22/18 08:24; Start 08/21/18 at 07:30 Spironolactone (Aldactone) 100 mg DAILY PO ; Start 08/21/18 at 09:00; Stop at 09:00; Status DC Triamcinolone Acetonide (Kenalog) 1 dev DAILY PRN TP FACIAL ITCHING; Start 08/20 at 15:15 Nystatin (Mycostatin) 1 dev PRN TID PRN TP YEASTY RASH; Start 08/20/18 at 15:15 Albumin Human 50 ml @ 50 mls/hr TID IV Last administered on 08/22/18 08:26; Start 08/20/18 at 21:00 Sodium Chloride 1,000 ml @ 75 mls/hr [id number] IV Last administered on 08/21/18at 15:32; Start 08/20/18 at 15:45 Ascorbic Acid (Vitamin C) 500 mg DAILY PO Last administered on 08/22/18 08:24; Start 08/21/18 at 09:00 Vitamin A/Vitamin D (Vitamin A & D Ointment) 1 dev BID TP Last administered on 08/22/18 08:26; Start 08/21/18 at 09:00 Meropenem 500 mg/ Sodium Chloride 50 ml @ 100 mls/hr Q8HRS IV Last administered on 08/22/18 05:38; Start 08/21/18 at 15:00 Lactobacillus Rhamnosus (Culturelle) 1 cap BID PO Last administered on 08:24; Start 08/21/18 at 21:00 Active Scripts Active Macrobid 100 Mg Capsule (Nitrofurantoin Monohyd/M-Cryst) 100 Mg Capsule 1 Cap PO BID 14 Days Reported Xarelto (Rivaroxaban) 10 Mg Tablet 1.5 Tab PO DAILY Metolazone 2.5 Mg Tablet 2.5 Mg PO 3X/WEEK Fluticasone Propionate 15.8 Ml [place].susp 15.8 Ml NS BID PRN Loratadine 10 Mg Tablet 1 Tab PO DAILY PRN Multi Vitamin Daily (Multivitamin) 1 Each Tablet 1 Each PO DAILY Nystatin 15 Gm Cream..g. 1 Dev TP TID PRN Acetaminophen 500 Mg Tablet 2 Tab PO TID PRN Entocort Ec (Budesonide) 3 Mg Capdr...er 3 Cap PO DAILY Voltaren (Diclofenac Sodium) 100 Gm Gel..gram. 1 Gm TP QID Zofran (Ondansetron Hcl) 4 Mg Tablet 1 Tab PO Q8HRS PRN Triamcinolone Acetonide 15 Gm Cream..g. 1 Dev TP DAILY PRN Vitamin D2 (Ergocalciferol (Vitamin D2)) 50,000 Unit Capsule 1 Cap PO WEEKLY Loperamide (Loperamide Hcl) 2 Mg Capsule 1 Mg PO DAILY PRN Gabapentin (Gabapentin) 100 Mg Capsule 100 Mg PO HS Lidocaine 1 Each Adh..patch 1 Each TP DAILY Bumetanide 2 Mg Tablet 1 Tab PO DAILY Spironolactone 100 Mg Tablet 1 Tab PO DAILY Zoloft (Sertraline Hcl) 100 Mg Tablet 1 Tab PO DAILY Remeron (Mirtazapine) 30 Mg Tablet 1 Tab PO QHS Pantoprazole Sodium 40 Mg Tablet.dr 1 Tab PO DAILY Vitals/I & O Vital Sign - Last 24 Hours 08/21/18 08/21/18 08/21/18 08/21/18 11:01 15:16 18:33 20:00 Temp 98.1 98.0 97.6 Pulse 78 83 83 Resp 20 20 18 B/P (MAP) 103/64 (77) 111/66 (81) 103/57 (72) Pulse Ox 97 95 94 O2 Delivery Nasal Cannula Nasal Cannula Nasal Cannula Nasal Cannula O2 Flow Rate 2.0 2.0 2.0 2.0 08/21/18 08/22/18 08/22/18 23:25 03:05 05:01 Temp 98.0 97.8 Pulse 88 79 79 Resp 22 20 B/P (MAP) 111/65 (80) 115/69 (84) Pulse Ox 94 98 O2 Delivery Nasal Cannula Nasal Cannula O2 Flow Rate 2.0 2.0 Intake and Output 08/21/18 08/21/18 08/22/18 15:01 23:01 07:01 Intake Total 480 ml 200 ml 470 ml Balance 480 ml 200 ml 470 ml LUCIA MILLAN [employer]OT[employer] OPER[employer] Aug 22, 2018 08:58
[2018-08-22 10:49] VITALS: BP 126/71
[2018-08-22 15:30] VITALS: BP 107/62
[2018-08-22 20:21] VITALS: BP 100/62
[2018-08-22] MEDS: GABAPENTIN 100 MG CAPSULE. PO SCH ×2 (20:53→23:44)
[2018-08-22] MEDS: MIRTAZAPINE 30 MG TABLET PO SCH ×2 (20:53→23:44)
[2018-08-22] MEDS: ONDANSETRON ODT 4 MG TAB.RAPDIS PO PRN (20:59)
--- NOTE | 2018-08-22 22:48 | PN ---
DATE: 08/22/2018 SUBJECTIVE: The patient is resting slightly propped up in bed, in no apparent respiratory distress. She is awake, alert, responding appropriately. She apparently has not had any bowel movement today, concerned about that, but she had a good day. She worked with physical therapy. In fact, she stood up, walked for 3 steps and sat in the chair for almost an hour. She has no further episode of syncope, has no evidence of postural hypertension. PHYSICAL EXAMINATION: GENERAL: When I examined her, she looked well and was clearly in no apparent respiratory distress. No pallor, jaundice, cyanosis, or thyromegaly. No jugular venous distension. No limb edema. VITAL SIGNS: Her heart rate was 88, blood pressure was 107/62, temperature was 98.4, respiratory rate was 20, and oxygen saturation was 96% on 2 liters of oxygen. HEAD, EYES, EARS, NOSE, AND THROAT: Showed normocephalic, atraumatic. NECK: Supple. HEART: Showed normal first and second heart sounds. No gallop, rub, or murmur. CHEST: Clear to auscultation. No crepitation or rhonchi. ABDOMEN: Distended, soft, nontender. No guarding or rigidity. No organomegaly. All hernial orifices intact. Bowel sounds normal. NEUROLOGIC: She was awake, alert, responding appropriately. All cranial nerves intact. She moves extremities without difficulty, although she is mostly bedbound, chair bound. Her intake over the last 24 hours was 900, no output was recorded. LABORATORY DATA: Her lab work this morning showed a serum sodium 143, potassium 3.7, chloride 105, bicarbonate 32, anion gap of 6, BUN 26, creatinine 1.2, estimated GFR was 43 mL per minute. Her glucose was 90, calcium was 8.5, magnesium was 1.7. Total bilirubin, AST, ALT, alkaline phosphatase were normal. Total protein was 6.2, albumin 2.6. Her hemoglobin was 8.1, hematocrit 25.8. ASSESSMENT: 1. Recurrent episode of syncope, likely due to over diuresis, resolving. 2. Acute on chronic renal insufficiency, resolving. 3. Anemia, status post 1 unit of packed RBCs. The patient continued to be on Xarelto. 4. History of deep venous thrombosis and pulmonary embolism for which she is on Xarelto. 5. Hypertension. If anything, the blood pressure is actually borderline. 6. Chronic lower extremity edema. PLAN: My plan is to continue with current plan of management. I will repeat all her lab works tomorrow and if she remains stable, probably can be discharged to a skilled side to continue the process of physical and occupational therapy. LOREN HILARIO MD DR: JAQUELIN/rhys JOB#: [id number] / [id number]
[2018-08-22 23:00] VITALS: BP 115/66
[2018-08-23 05:03] VITALS: BP 120/71
[2018-08-23] MEDS: MEROPENEM 500 MG in IV NORMAL SALINE 50ML 50 ML IV SCH ×3 (05:46→22:00)
[2018-08-23 06:21] LABS: HEMATOCRIT 24.1 % (36.0-47.0); HEMOGLOBIN 7.4 g/dL (12.0-15.5); RED BLOOD COUNT 2.94 x10^6/uL (3.50-5.40); RED CELL DISTRIBUTION WIDTH 18.9 % (11.5-14.5); WHITE BLOOD COUNT 6.9 x10^3/uL (4.0-11.0)
[2018-08-23 06:40] LABS: CALCIUM 8.4 mg/dL (8.5-10.1); GFR 53.1; POTASSIUM 4.1 mmol/L (3.5-5.1); TOTAL BILIRUBIN 0.3 mg/dL (0.2-1.0); TOTAL PROTEIN 6.1 g/dL (6.4-8.2)
[2018-08-23] MEDS: PANTOPRAZOLE 40 MG TABLET. PO SCH (07:30)
[2018-08-23] MEDS: BUDESONIDE 3 MG CAP.ER.24H. PO SCH (09:00)
[2018-08-23] MEDS: NITROFURANTOIN MONOHYD/M-CRYST 100 MG CAPSULE. PO SCH ×2 (09:00→20:43)
[2018-08-23] MEDS: ASCORBIC ACID 500 MG TABLET PO SCH (09:00)
[2018-08-23] MEDS: SERTRALINE 100 MG TABLET. PO SCH (09:00)
[2018-08-23] MEDS: MULTIVITAMIN with MINERAL TABLET. PO SCH (09:00)
[2018-08-23] MEDS: LACTOBACILLUS RHAMNOSUS GG 1 CAPSULE. PO SCH ×2 (09:00→20:43)
[2018-08-23] MEDS: ALBUMIN HUMAN 25% 50 ML IV SCH ×3 (09:00→20:42)
[2018-08-23] MEDS: VITS A & D/LANOLIN TOPICAL OINTMENT 56GM TUBE. TP SCH ×2 (10:41→20:42)
[2018-08-23] MEDS: DICLOFENAC SODIUM 1% TOPICAL GEL 100GM TUBE. TP SCH ×4 (10:41→20:42)
[2018-08-23] MEDS: LIDOCAINE (700MG/PATCH) PATCH. TD SCH (10:41)
[2018-08-23] MEDS: IV NORMAL SALINE 1,000ML 1,000 ML IV SCH ×2 (10:44→23:45)
[2018-08-23] MEDS: ONDANSETRON ODT 4 MG TAB.RAPDIS PO PRN (10:44)
[2018-08-23 10:53] VITALS: BP 102/66
[2018-08-23 15:35] VITALS: BP 122/68
[2018-08-23 19:35] VITALS: BP 122/75
[2018-08-23] MEDS: GABAPENTIN 100 MG CAPSULE. PO SCH (20:42)
[2018-08-23] MEDS: MIRTAZAPINE 30 MG TABLET PO SCH (20:43)
--- NOTE | 2018-08-23 22:19 | PN ---
DATE: 08/23/2018 SUBJECTIVE: The patient is resting, slightly propped up in bed, no apparent distress. She is complaining of being nauseous and has not had any bowel movement. She lost her IV line, so she did not receive any of her IV fluid and/or human albumin. OBJECTIVE: GENERAL: When I examined her, she looked well and was clearly in no apparent respiratory distress, slightly pale, but no jaundice, cyanosis, or thyromegaly. No jugular venous distension. No lower limb edema. VITAL SIGNS: Her heart rate was 68, blood pressure was 102/66, temperature was 98.2, respiratory rate was 20, and oxygen saturation was 99% on 2 liters of oxygen. HEENT: Examination of the head, eyes, ears, nose and throat showed normocephalic, atraumatic. NECK: Supple. HEART: Showed normal first and second heart sounds. No gallop, rub or murmur. CHEST: Clear to auscultation. No crepitation or rhonchi. ABDOMEN: Distended, soft, nontender. No guarding or rigidity. No organomegaly. Her hernial orifices are intact. Bowel sounds normal. NEUROLOGIC: She was awake, alert, responding appropriately. All her cranial nerves are intact. EXTREMITIES: She moves extremities without difficulty. Examination of the extremities showed no clubbing, cyanosis and her edema has completely resolved. Her intake over the last 24 hours was 1150. No output was recorded. LABORATORY DATA: As of this morning, her white cell count was 6900, hemoglobin 7.4, hematocrit 24, MCV 82, and platelet count 368,000. Her chemistry showed serum sodium of 142, potassium 4.1, chloride 106, bicarbonate 29, anion gap of 7, BUN 21, creatinine 1, estimated GFR was 53 mL per minute. Her glucose was 87, calcium was 8.4. Total bilirubin, AST, ALT, alkaline phosphatase were normal. Total protein was 6.1, albumin 3. Urinalysis, the urine showed growth of more than 2 organisms recovered, none predominant. ASSESSMENT: 1. Recurrent syncopal episode, likely due to over diuresis, resolving. 2. Eviir-dj-hlfwiop kidney insufficiency, resolving. 3. Anemia, status post 1 unit of packed red blood cells. Her H and H are drifting down. 4. History of deep vein thrombosis and pulmonary embolism for which she is on Xarelto. 5. Hypertension. The patient's actually blood pressure is borderline. 6. Chronic lower extremity edema. 7. Crohn's disease. 8. Constipation. PLAN: My plan is to continue with the human albumin. I will start her on MiraLax. We will repeat her lab work again tomorrow and if her hemoglobin is 7 or less than 7, we will transfuse her 1 unit of blood before she can be transferred back to [place]. LOREN HILARIO MD DR: JAQUELIN/rhys JOB#: [id number] / [id number]
[2018-08-23 22:55] VITALS: BP 114/70
[2018-08-24] MEDS: MEROPENEM 500 MG in IV NORMAL SALINE 50ML 50 ML IV SCH ×2 (05:18→14:19)
[2018-08-24 06:10] VITALS: BP 112/65
[2018-08-24 06:29] LABS: CALCIUM 8.5 mg/dL (8.5-10.1); CREATININE 1.1 mg/dL (0.6-1.0); GFR 47.6; POTASSIUM 4.2 mmol/L (3.5-5.1)
[2018-08-24 06:33] LABS: HEMATOCRIT 23.3 % (36.0-47.0); HEMOGLOBIN 7.2 g/dL (12.0-15.5)
[2018-08-24] MEDS: PANTOPRAZOLE 40 MG TABLET. PO SCH (07:30)
[2018-08-24] MEDS ORDERED: RIVAROXABAN 15 MG TABLET. PO SCH (09:00)
[2018-08-24] MEDS: ASCORBIC ACID 500 MG TABLET PO SCH (09:00)
[2018-08-24] MEDS ORDERED: BUMETANIDE 1 MG/4 ML VIAL. IVP ONE (09:00)
[2018-08-24] MEDS: SERTRALINE 100 MG TABLET. PO SCH (09:00)
[2018-08-24] MEDS ORDERED: POLYETHYLENE GLYCOL 3350 17 GM PACKET. PO SCH (09:00)
[2018-08-24] MEDS: LIDOCAINE (700MG/PATCH) PATCH. TD SCH (09:00)
[2018-08-24] MEDS: LACTOBACILLUS RHAMNOSUS GG 1 CAPSULE. PO SCH (09:00)
[2018-08-24] MEDS: MULTIVITAMIN with MINERAL TABLET. PO SCH (09:00)
[2018-08-24] MEDS: ONDANSETRON ODT 4 MG TAB.RAPDIS PO PRN (09:03)
--- NOTE | 2018-08-24 09:35 | RAD ---
CHEST AP ONLY History: Shortness of air Comparison: May 04, 2017 Findings: Single view of the chest is submitted. Pericardial cardiac silhouette may be somewhat larger. There is increased right base opacity probably component of small right pleural effusion with adjacent airspace opacity. There is mild interstitial opacity bilaterally also greater. There is a tortuous, possibly ectatic aortic arch. No pneumothorax is identified. Impression: 1. There is right base opacity, probable component of small right pleural effusion with adjacent atelectasis/infiltrate. There is mild interstitial opacity which could be due to component of mild interstitial edema. 2. Pericardial cardiac silhouette may be larger than previous 2017 exam. Electronically signed by: Edmond Butler MD (08/24/2018 9:31 AM) [id number]
[2018-08-24] MEDS: ALBUMIN HUMAN 25% 50 ML IV SCH ×2 (10:04→14:19)
[2018-08-24 11:34] VITALS: BP 106/68
[2018-08-24] MEDS ORDERED: IPRATRPIUM/ALBUTEROL 0.5/2.5MG 3 ML NEBU. NEB SCH (12:00)
[2018-08-24] MEDS ORDERED: KETOCONAZOLE 2% TOPICAL CREAM 30GM TUBE. TP SCH (12:15)
[2018-08-24] MEDS ORDERED: IRON SUCROSE COMPLEX 200 MG in IV NORMAL SALINE 100ML 100 ML IV ONE (12:30)
[2018-08-24] MEDS: BUDESONIDE 3 MG CAP.ER.24H. PO SCH (12:40)
[2018-08-24] MEDS: VITS A & D/LANOLIN TOPICAL OINTMENT 56GM TUBE. TP SCH (12:47)
[2018-08-24] MEDS: DICLOFENAC SODIUM 1% TOPICAL GEL 100GM TUBE. TP SCH ×2 (12:48→13:00)
[2018-08-24] MEDS: NITROFURANTOIN MONOHYD/M-CRYST 100 MG CAPSULE. PO SCH (12:50)
[2018-08-24] MEDS: IV NORMAL SALINE 1,000ML 1,000 ML IV SCH (13:05)
--- NOTE | 2018-08-24 13:55 | DS ---
DATE OF DISCHARGE: 08/24/2018 HOSPITAL COURSE: The patient is an 82-year-old female patient, who was admitted with recurrent episode of syncope as she was on multiple diuretics. She was on Bumex and metolazone as well as spironolactone and she became clinically dehydrated and although stopped her diuretics. She continued to have syncopal episode that was witnessed by the time she arrived here to the hospital with positive postural hypertension. She was also noted to have gluteal decubitus ulcer with marked maceration of the gluteal, sacral and perianal area. She has history of deep venous thrombosis and pulmonary embolism for which she is on Xarelto and had had acute blood loss anemia with hemoglobin that dropped down to 6.5 for which she was admitted to [facility] at the end of July where she has received 1 unit of packed RBCs. The patient was started on gentle rehydration and also on 25% human albumin and she did very well. Her BUN and creatinine has steadily came down from 53 and 1.9 down to 25 and 1.1. Her H and H initially was 9.1 and 30; however, with rehydration. The actually extent of her anemia became clear. The hemoglobin came down to 7.2 and 23.3 for which we gave her 200 mg of Venofer IV. She did grow 2 organisms, none predominant. She was treated empirically with IV meropenem. She is allergic to PENICILLIN, SULFA, CEPHALOSPORINS as well as the QUINOLONE. She developed rash in her face and seemed to be worsening of seborrheic dermatitis which we started her on Nizoral cream 2% twice a day and thus she remained hemodynamically stable. A decision was made to discharge her back to [facility] to continue the process of rehabilitation there. PHYSICAL EXAMINATION: GENERAL: When I examined her today, she looked well and was clearly in no apparent respiratory distress. No pallor, jaundice or cyanosis. She is slightly pale, but no jaundice, cyanosis, or thyromegaly. No jugular venous distension. No limb edema. VITAL SIGNS: Her heart rate was 93, blood pressure was 106/68, temperature was 98.1, respiratory rate was 24, and oxygen saturation was 96% on 2 liters of oxygen. HEAD, EYES, EARS, NOSE AND THROAT: Showed normocephalic, atraumatic. NECK: Supple. HEART: Showed normal first and second heart sounds. No gallop, rub or murmur. CHEST: Clear to auscultation. No crepitation or rhonchi. ABDOMEN: Distended, soft. No guarding or rigidity. No organomegaly. All hernial orifices intact. Bowel sounds normal. NEUROLOGIC: She was awake, alert, responding appropriately. All cranial nerves intact. She moves extremities without difficulty, although she is mostly bedbound, chair bound. Her intake over the last 24 hours was 1490, no output was recorded. LABORATORY DATA: This morning showed hemoglobin of 7.2, hematocrit 23.3. Her MCV was 143, potassium 4.2, chloride 107, bicarbonate 30, anion gap of 6, BUN 25, creatinine 1.1, estimated GFR was 47 mL per minute. Her glucose 90 and calcium was 8.5. DISCHARGE MEDICATIONS: She will be discharged to [facility] to continue on following medications: Vitamin D 50,000 international unit once a week, ketaconazole for Nizoral 2% topical cream one application twice a day, DuoNeb 4 times a day, Xarelto 50 mg daily, polyethylene glycol 17 grams daily, lactobacillus 1 capsule twice a day, ascorbic acid 500 mg twice a day, multivitamin with calcium daily, lidocaine 1 patch topically once a day, Flonase 1 spray to each nostril twice a day, budesonide 9 mg daily, sertraline 100 mg daily, Protonix 40 mg daily, mirtazapine 30 mg at bedtime, gabapentin 100 mg at bedtime, diclofenac sodium 1 application 4 times a day, nystatin applied topically 3 times a day, triamcinolone acetonide applied topically facial itching and ondansetron 4 mg every 8 hours, loperamide 2 mg every 4 hours, Tylenol 1000 mg 3 times a day. FINAL DISCHARGE DIAGNOSES: 1. Recurrent syncopal episode, likely to over diuresis, resolving. 2. Acute on chronic kidney insufficiency, resolving. 3. Anemia, status post 1 unit of packed RBCs. Her H and H around 7 and 21. 4. History of deep vein thrombosis and pulmonary embolism for which she is on Xarelto. 5. Hypertension. 6. Chronic lower extremity edema. 7. Crohn's disease. 8. Constipation. 9. Iron deficiency anemia for which she was given 200 mg of IV Injectafer once. LOREN HILARIO MD DR: Keyur JOB#: [id number] / [id number]
[2018-08-25] MEDS ORDERED: KETOCONAZOLE 2% TOPICAL CREAM 30GM TUBE. TP SCH (09:00)
[2018-08-27] MEDS ORDERED: CHOLECALCIFEROL (VITAMIN D3) 50,000 UNIT CAPSULE PO SCH (09:00)
== END 2018-08-24 16:00 | DRG 682 ==
LOC: 1 SOUTH 10:37
PROVIDERS: ADMIT Internal Medicine; ATTEND Internal Medicine
DX: N17.0 Acute kidney failure with tubular necrosis (principal); E43 Unspecified severe protein-calorie malnutrition; K50.90 Crohn's disease, unspecified, without complications; E86.0 Dehydration; D64.9 Anemia, unspecified; I95.1 Orthostatic hypotension; F32.9 Major depressive disorder, single episode, unspecified; M19.90 Unspecified osteoarthritis, unspecified site; D50.9 Iron deficiency anemia, unspecified; K59.00 Constipation, unspecified; T50.2X5A Adverse effect of carbonic-anhydrase inhibitors, benzothiadiazides and other diuretics, initial encounter; I12.9 Hypertensive chronic kidney disease with stage 1 through stage 4 chronic kidney disease, or unspecified chronic kidney disease; I87.8 Other specified disorders of veins; L89.309 Pressure ulcer of unspecified buttock, unspecified stage; N18.9 Chronic kidney disease, unspecified; L21.9 Seborrheic dermatitis, unspecified; Z80.8 Family history of malignant neoplasm of other organs or systems; Z79.01 Long term (current) use of anticoagulants; Z82.3 Family history of stroke; Z68.34 Body mass index [BMI] 34.0-34.9, adult; Z82.49 Family history of ischemic heart disease and other diseases of the circulatory system; Z86.711 Personal history of pulmonary embolism; Z86.718 Personal history of other venous thrombosis and embolism; Z87.440 Personal history of urinary (tract) infections; Z88.0 Allergy status to penicillin; Z88.2 Allergy status to sulfonamides; Z99.3 Dependence on wheelchair; Z88.1 Allergy status to other antibiotic agents
CPT/HCPCS: 36415; 71045; 80048; 80053; 81001; 83735; 85014; 85018; 85027; 87086; 87641; 93306; 94640; J1756; J2185; J3490; J7620; P9046; Q0162; 97110; 97530; 97535; J7030

== ENCOUNTER 2018-09-27 11:15 | Inpatient (IN) | payer MEDICARE, OTHER ==
[~2018-09-27] VITALS: Ht 149.9 cm; Wt 86.2 kg
[~2018-09-27 11:15] MED LIST changes: +ACET500T68 PO; +BUDE3CAP15 PO; +BUME2TAB PO; +DICL100G18 TP; +ERGO500027 PO; +FLUT15.88 NS; +GABA-585 PO; +LIDO700A39 TP; +LOPE2CAP PO; +LORA10TA3 PO; +METO2.5T PO; +MIRT30TA PO; +MULT-245 PO; +NYST15CR TP; +ONDA4TAB7 PO; +PANT40TA5 PO; +RIVA10TA PO; +SERT100T PO; +SPIR100T4 PO; +TRIA15CR50 TP
[2018-09-27 11:41] LABS: BASO % 1 % (0-3); EOS # 0.2 x10^3/uL (0.0-0.7); EOS % 3 % (0-3); HEMOGLOBIN 8.7 g/dL (12.0-15.5); LYMPH # 1.9 x10^3/uL (1.0-4.8); LYMPH % 30 % (24-48); MEAN CORPUSCULAR HEMOGLOBIN 27 pg (25-35); MEAN CORPUSCULAR HGB CONC 30 g/dL (31-37); MEAN CORPUSCULAR VOLUME 89 fL (79-100); MONO # 0.6 x10^3/uL (0.0-1.1); MONO % 9 % (0-9); NEUT # 3.6 x10^3uL (1.8-7.7); NEUT % 58 % (31-73); PLATELET COUNT 307 x10^3/uL (140-400); RED BLOOD COUNT 3.25 x10^6/uL (3.50-5.40); RED CELL DISTRIBUTION WIDTH 25.6 % (11.5-14.5); WHITE BLOOD COUNT 6.3 x10^3/uL (4.0-11.0)
--- NOTE | 2018-09-27 11:45 | PHYS DOC ---
Past History Past Medical History: CAD, Constipation, Depression, UTI, Other Alcohol Use: None Drug Use: None Adult General Chief Complaint Chief Complaint: WEAKNESS/GENERALIZED HPI HPI 83-year-old female presents via EMS from the care facility for increased weakness. Her facility reported that she has been appearing more weak and tired the last 1-2 days. Patient has a history of frequent UTIs. They were concerned about that. She also does not tolerate by mouth medications very well especially antibiotics. When I asked the patient how she feels, she states that she feels fine except she is thirsty. She denies dysuria, shortness of breath, cough, chest pain. She is wearing oxygen in the room and she tells me she does not normally wear oxygen. She has not felt feverish. Review of Systems Review of Systems Constitutional: Denies fever or chills. General weakness [] Eyes: Denies change in visual acuity, redness, or eye pain [] HENT: Denies nasal congestion or sore throat [] Respiratory: Denies cough or shortness of breath [] Cardiovascular: No additional information not addressed in HPI [] GI: Denies abdominal pain, nausea, vomiting, bloody stools or diarrhea [] : Denies dysuria or hematuria [] Musculoskeletal: Denies back pain or joint pain [] Integument: Denies rash or skin lesions [] Neurologic: Denies headache, focal weakness or sensory changes [] Endocrine: Denies polyuria or polydipsia [] All other systems were reviewed and found to be within normal limits, except as documented in this note. Allergies Allergies Allergies Coded Allergies Type Severity Reaction Last Updated Verified Penicillins Allergy Intermediate 08/21/18 Yes Sulfa (Sulfonamide Antibiotics) Allergy Intermediate 08/21/18 Yes aspirin Allergy Intermediate 08/21/18 Yes cefdinir Allergy Intermediate 08/21/18 Yes ciprofloxacin Allergy Intermediate 08/21/18 Yes sulfamethoxazole Allergy Intermediate 08/21/18 Yes tramadol Allergy Intermediate 08/21/18 Yes trimethoprim Allergy Intermediate 08/21/18 Yes Physical Exam Physical Exam Constitutional: Well developed, well nourished, no acute distress, non-toxic appearance. [] HENT: Normocephalic, atraumatic, bilateral external ears normal, oropharynx dry , no oral exudates, nose normal. Hard of hearing [] Eyes: PERRLA, EOMI, conjunctiva normal, no discharge. [] Neck: Normal range of motion, no tenderness, supple, no stridor. [] Cardiovascular:Heart rate regular rhythm, no murmur [] Lungs & Thorax: Bilateral breath sounds clear to auscultation [] Abdomen: Bowel sounds normal, soft, no tenderness, no masses, no pulsatile masses. [] Skin: Warm, dry, no erythema, no rash. [] Back: No tenderness, no CVA tenderness. [] Extremities: No tenderness, no cyanosis, no clubbing, ROM intact, no edema. [] Neurologic: Alert and oriented X 3, normal motor function, normal sensory function, no focal deficits noted. [] Psychologic: Affect normal, judgement normal, mood normal. [] Current Patient Data Vital Signs Vital Signs Date Time Temp Pulse Resp B/P (MAP) Pulse Ox O2 Delivery O2 Flow Rate FiO2 09/27/18 11:32 98.0 87 18 94 Nasal Cannula 2.0 EKG EKG Sinus rhythm, rate 88, left axis, no ST elevations or depressions.[] Radiology/Procedures Radiology/Procedures [] Impressions: EXAM: CHEST 1 VIEW History: Weakness COMPARISON: 08/24/2018 TECHNIQUE: Single portable radiograph of the chest FINDINGS: Low lung volumes and technique accentuates heart size and pulmonary vascularity. There is mild increased diffuse prominent appearing bilateral interstitial lung markings likely congestive changes. Mild right lung base airspace opacities likely atelectasis or infiltrate similar to prior exam. IMPRESSION: 1. Mild congestive changes. 2. Mild right lung base airspace opacities likely atelectasis or infiltrates similar to prior exam. Electronically signed by: Loc Hackett MD (09/27/2018 11:51 AM) [place] [id number] DICTATED AND SIGNED BY: LOC HACKETT MD DATE: 09/27/18 1149 CC: SHAWN MCCOY DO; KEILA OLIVER MD Course & Med Decision Making Course & Med Decision Making Pertinent Labs and Imaging studies reviewed. (See chart for details) Patient's labs are significant for urinary tract infection. She has multiple allergies. I will treat her with meropenem empirically. I discussed the case with Dr. Rose and he has accepted the patient for admission and further treatment. [] Dragon Disclaimer Dragon Disclaimer This electronic medical record was generated, in whole or in part, using a voice recognition dictation system. Departure Departure: Impression: Primary Impression: UTI (urinary tract infection) Additional Impression: Weakness generalized Disposition: 09 ADMITTED INPATIENT Condition: STABLE Referrals: KEILA OLIVER MD (PCP) Problem Qualifiers Primary Impression: UTI (urinary tract infection) Urinary tract infection type: acute cystitis Hematuria presence: with hematuria Qualified Codes: N30.01 - Acute cystitis with hematuria SHAWN MCCOY DO Sep 27, 2018 11:45
--- NOTE | 2018-09-27 11:54 | RAD ---
EXAM: CHEST 1 VIEW History: Weakness COMPARISON: 08/24/2018 TECHNIQUE: Single portable radiograph of the chest FINDINGS: Low lung volumes and technique accentuates heart size and pulmonary vascularity. There is mild increased diffuse prominent appearing bilateral interstitial lung markings likely congestive changes. Mild right lung base airspace opacities likely atelectasis or infiltrate similar to prior exam. IMPRESSION: 1. Mild congestive changes. 2. Mild right lung base airspace opacities likely atelectasis or infiltrates similar to prior exam. Electronically signed by: Loc Maradiaga MD (09/27/2018 11:51 AM) [place] [id number]
[2018-09-27 11:55] LABS: ALBUMIN 2.4 g/dL (3.4-5.0); ALBUMIN/GLOBULIN RATIO 0.6 (1.0-1.7); CALCIUM 8.9 mg/dL (8.5-10.1); CREATININE 1.2 mg/dL (0.6-1.0); GFR 42.9; POTASSIUM 4.5 mmol/L (3.5-5.1); TOTAL BILIRUBIN 0.2 mg/dL (0.2-1.0); TOTAL PROTEIN 6.3 g/dL (6.4-8.2)
[2018-09-27] MEDS ORDERED: IV NORMAL SALINE 1,000ML 1,000 ML IV ONE (12:00)
[2018-09-27 12:09] LABS: BILIRUBIN,URINE NEG (NEG); CLARITY,URINE CLOUDY; COLOR,URINE YELLOW; GLUCOSE,URINE NEG (NEG)
[2018-09-27 12:10] LABS: BACTERIA,URINE MANY /HPF (0-FEW); NITRITE,URINE NEG (NEG); RBC,URINE 20-40 /HPF (0-2); SQUAMOUS EPITHELIAL CELL,UR MOD /LPF; UROBILINOGEN,URINE 0.2 mg/dL (0.2 mg/dL); WBC,URINE TNTC /HPF (0-4)
[2018-09-27] MEDS ORDERED: MEROPENEM 1 GM in IV NORMAL SALINE 100ML 100 ML IV STA (12:16)
[2018-09-27 12:23] LABS: PLT ESTIMATE ADEQUATE (ADEQUATE); POLYCHROMASIA SLIGHT
[2018-09-27 12:24] LABS: HYPOCHROMIA SLIGHT; MICROCYTOSIS SLIGHT
[2018-09-27 12:25] LABS: ANISOCYTOSIS MARKED
[2018-09-27] MEDS ORDERED: ONDANSETRON PF 4 MG/2 ML VIAL. IV PRN (12:30)
[2018-09-27] MEDS ORDERED: ACETAMINOPHEN 325 MG TABLET PO PRN (12:30)
[2018-09-27] MEDS ORDERED: MEROPENEM 1 GM VIAL IV ONE (12:33)
[2018-09-27] MEDS ORDERED: IV NORMAL SALINE 100ML 100 ML ONE (12:34)
[2018-09-27 14:30] VITALS: BP 136/84
[2018-09-27] MEDS: DICLOFENAC SODIUM 1% TOPICAL GEL 100GM TUBE. TP SCH ×2 (17:00→21:21)
[2018-09-27] MEDS ORDERED: LOPERAMIDE 2 MG CAPSULE PO PRN (17:15)
[2018-09-27] MEDS ORDERED: ACETAMINOPHEN 500 MG TABLET PO PRN (17:15)
--- NOTE | 2018-09-27 17:29 | EKG ---
[address] [address] Test Date: 2018-09-27 Test Time: 11:31:45 Pat Name: JAZMYN SEYMOUR Department: Room: 109 A Gender: F [employer] Tender: : 1935 Requested By: SHAWN MCCOY Order Number: [id number] Reading MD: Chris French Measurements Intervals [place] Rate: 88 P: 34 GA: 156 QRS: -12 QRSD: 76 T: 25 QT: 338 QTc: 412 Interpretive Statements SINUS RHYTHM LEFTWARD AXIS LOW LIMB LEAD VOLTAGE QRS(T) CONTOUR ABNORMALITY CONSIDER ANTEROSEPTAL MYOCARDIAL DAMAGE POSSIBLY ABNORMAL ECG RI6.01 No previous ECG available for comparison Electronically Signed On 10-03-2018 8:30:08 RESEARCH EDITOR by Chris French
[2018-09-27] MEDS ORDERED: TRIAMCINOLONE ACETONIDE 0.1% TOPICAL CREAM 15GM TUBE. TP PRN (17:30)
--- NOTE | 2018-09-27 18:00 | HP ---
ADMIT DATE: 09/27/2018 HISTORY OF PRESENT ILLNESS: The patient is an 83-year-old female patient, a resident at [facility] who apparently was extremely weak, lethargic, requires Natalie lift. Her weakness has been progressive for the last 2 days and a decision was made to transfer her to the Emergency Room where she was evaluated. She normally has tendency to have recurrent urinary tract infection and was extensively evaluated. She had a chest x-ray, which apparently showed that she has mild congestive changes. She has mild right lower lung base airspace opacities, likely atelectasis or infiltrate similar to prior exam. Her white cell count was normal. Her hemoglobin and hematocrit stable, actually better than before, and her chemistry was stable. Urinalysis showed large amount of blood, large amount of leukocyte esterase, 20-40 rbc's, too numerous to count wbc's and too many bacteria. The patient has multitude of allergies including allergies to PENICILLIN, SULFA DRUGS, SULFAMETHOXAZOLE AND CIPROFLOXACIN, and she was started on meropenem after obtaining the appropriate culture and sensitivity and was admitted for further evaluation and treatment. PAST MEDICAL HISTORY: Significant for Crohn's disease, degenerative joint disease, recurrent UTI, history of deep vein thrombosis and pulmonary embolism, depression. She is known to have an L4 compression fracture and was admitted to [facility], which she was not found to be suitable for vertebroplasty by the neurosurgeon and intervention radiologist. Recently, she was admitted to this hospital with recurrent syncopal episode and was found to be extremely dehydrated. PAST SURGICAL HISTORY: Significant for appendectomy, cholecystectomy, partial colectomy, colonoscopy and biopsy. ALLERGIES: SHE IS ALLERGIC TO CIPRO, ASPIRIN, CEFDINIR, PENICILLIN, SULFA AND TRAMADOL. FAMILY HISTORY: Positive for hypertension and CVA in her mother and bone cancer in her father. SOCIAL HISTORY: She is currently a resident at [facility]. She has 2 sons, one of them lives here and the other lives in [place], [place]. She does not smoke, drink alcohol or recreational drugs. She is mostly bed bound, wheelchair bound. MEDICATIONS: She is currently on following medications: She is on loratadine 10 mg once a day, nitrofurantoin 100 mg p.o. b.i.d., rivaroxaban for Xarelto 15 mg daily. She is on spironolactone 100 mg once a day, diclofenac sodium 1 gram 4 times a day, acetaminophen 500 mg, she takes 2 tablets 3 times a day; gabapentin 100 mg at bedtime, mirtazapine 30 mg at bedtime, sertraline for Zoloft 100 mg daily, bumetanide 2 mg daily, metolazone 2.5 mg 3 times a week, Flonase 1 spray to each nostril twice a day, loperamide 2 mg daily as needed, ondansetron 4 mg every 8 hours, Protonix 40 mg daily and budesonide for Entocort 3 capsules 9 mg daily and nystatin cream applied topically 3 times a day and Kenalog cream for facial itch daily, Lidoderm one patch topically daily, vitamin D2 for ergocalciferol 50,000 international units once a week, multivitamin 1 tablet once a day. REVIEW OF SYSTEMS: As per history of present illness. PHYSICAL EXAMINATION GENERAL: When I examined her, she was resting slightly propped up in bed, in no apparent respiratory distress, pale, but no jaundice or cyanosis. No lymphadenopathy. No thyromegaly. No jugular venous distension. No limb edema. VITAL SIGNS: Her heart rate was 90, blood pressure 136/84, temperature was 98, respiratory rate 20, and oxygen saturation was 95% on 2 liters of oxygen. HEAD, EYES, EARS, NOSE AND THROAT: Shows normocephalic, atraumatic. NECK: Supple. HEART: Showed normal first and second sounds. No gallop, rub or murmur. CHEST: Clear to auscultation. No crepitation or rhonchi. ABDOMEN: Distended, soft, nontender. No guarding or rigidity. No organomegaly. Hernial orifice intact. Bowel sounds normal. NEUROLOGIC: She is awake, somewhat confused, but all her cranial nerves are intact. She moves upper extremities to much good extent than lower extremities. SKIN: Examination of the skin of both lower extremities showed bilateral lower extremity cellulitis. LABORATORY DATA: Showed a white cell count of 6300, hemoglobin 8.7, hematocrit 29, MCV 89 and platelet count of 307,000 with normal manual differential. Her serum sodium was 144, potassium 4.5, chloride 109, bicarbonate 32, anion gap of 3, BUN 24, creatinine 1.2, estimated GFR was 43 mL per minute. Her glucose was 97, calcium was 8.9. Total bilirubin, AST, ALT were normal. Alkaline phosphatase slightly elevated. Total protein was 6.3, albumin was 2.4. Urinalysis showed the urine was yellow, cloudy with a pH of 5.5, specific gravity of 1.025 with large amount of protein, negative for glucose, ketones, large amount of blood, negative for nitrites and bilirubin. There was large amount of leukocyte esterase, 20-40 wbc's, too numerous to count wbc's, many bacteria. DIAGNOSTIC DATA: She did have a chest x-ray, which showed that she has low lung volumes and technique, accentuated heart size and pulmonary vascularity. There is mild increase in diffuse prominent appearing, bilateral interstitial lung markings, likely congestive changes as mild right lung base airspace opacities, likely atelectasis or infiltrate similar to prior exam. IMPRESSION AND PLAN: In summary, this is an 83-year-old female patient, a resident at [facility], came in with increased weakness and that has been worsening over the last 2 days. Her chest x-ray showed that probably right lower lobe infiltrate. She has also probably bilateral lower extremity cellulitis and she has urinary tract infection. She has allergies to multiple different antibiotic classes. She was started on meropenem. I will add also Zyvox and I probably start her also on hydrocortisone IV to make sure that she is covered with steroids and once she is improved then she is able to take things by mouth. We would resume all her medication. LOREN HILARIO MD DR: JAQUELIN/rhys JOB#: [id number] / [id number]
[2018-09-27 19:15] VITALS: BP 135/75
[2018-09-27] MEDS ORDERED: CHOL-5 PO (19:19)
[2018-09-27] MEDS ORDERED: GABA300C8 PO (19:19)
[2018-09-27] MEDS ORDERED: IPRA3AMP29 NEB (19:19)
[2018-09-27] MEDS ORDERED: VITS42.55 TP (19:19)
[2018-09-27] MEDS ORDERED: LACT1CAP2 PO (19:19)
[2018-09-27] MEDS ORDERED: NYST15CR TP (19:19)
[2018-09-27] MEDS ORDERED: ASCO500T2 PO (19:19)
[2018-09-27] MEDS ORDERED: POLY17PO5 PO (19:19)
[2018-09-27] MEDS ORDERED: IPRATRPIUM/ALBUTEROL 0.5/2.5MG 3 ML NEBU. NEB PRN (20:15)
[2018-09-27] MEDS ORDERED: MIRTAZAPINE 30 MG TABLET PO SCH (21:00)
[2018-09-27] MEDS ORDERED: NYSTATIN 100,000 UNIT/GM TOPICAL CREAM 15GM TUBE. TP PRN (21:00)
[2018-09-27] MEDS ORDERED: GABAPENTIN 100 MG CAPSULE. PO SCH (21:00)
[2018-09-27] MEDS: LACTOBACILLUS RHAMNOSUS GG 1 CAPSULE. PO SCH (21:20)
[2018-09-27] MEDS: GABAPENTIN 300 MG CAPSULE. PO SCH (21:20)
[2018-09-27] MEDS: ASCORBIC ACID 500 MG TABLET PO SCH (21:20)
[2018-09-27] MEDS: MEROPENEM 1 GM in IV NORMAL SALINE 100ML 100 ML IV SCH (21:21)
[2018-09-27] MEDS: VITS A & D/LANOLIN TOPICAL OINTMENT 56GM TUBE. TP SCH (21:23)
[2018-09-27] MEDS ORDERED: MEROPENEM 500 MG in IV NORMAL SALINE 50ML 50 ML IV SCH (22:00)
[2018-09-27 23:50] VITALS: BP 116/64
[2018-09-28 06:16] LABS: BASO % 0 % (0-3); EOS # 0.4 x10^3/uL (0.0-0.7); EOS % 5 % (0-3); HEMATOCRIT 27.4 % (36.0-47.0); HEMOGLOBIN 8.4 g/dL (12.0-15.5); LYMPH # 0.6 x10^3/uL (1.0-4.8); LYMPH % 7 % (24-48); MEAN CORPUSCULAR HEMOGLOBIN 27 pg (25-35); MEAN CORPUSCULAR HGB CONC 31 g/dL (31-37); MEAN CORPUSCULAR VOLUME 88 fL (79-100); MONO # 0.4 x10^3/uL (0.0-1.1); MONO % 4 % (0-9); NEUT # 7.4 x10^3uL (1.8-7.7); NEUT % 84 % (31-73); PLATELET COUNT 274 x10^3/uL (140-400); RED BLOOD COUNT 3.11 x10^6/uL (3.50-5.40); RED CELL DISTRIBUTION WIDTH 25.2 % (11.5-14.5); WHITE BLOOD COUNT 8.8 x10^3/uL (4.0-11.0)
[2018-09-28 06:30] VITALS: BP 107/68
[2018-09-28 06:31] LABS: ALBUMIN/GLOBULIN RATIO 0.6 (1.0-1.7); CALCIUM 8.2 mg/dL (8.5-10.1); CREATININE 1.1 mg/dL (0.6-1.0); GFR 47.4; POTASSIUM 4.4 mmol/L (3.5-5.1); TOTAL BILIRUBIN 0.3 mg/dL (0.2-1.0); TOTAL PROTEIN 5.5 g/dL (6.4-8.2)
[2018-09-28] MEDS ORDERED: SERTRALINE 100 MG TABLET. PO SCH (09:00)
[2018-09-28] MEDS ORDERED: CETIRIZINE HCL 10 MG TABLET PO PRN (09:00)
[2018-09-28] MEDS ORDERED: metOLazone 2.5 MG TABLET PO SCH (09:00)
[2018-09-28] MEDS ORDERED: SPIRONOLACTONE 25 MG TABLET PO SCH (09:00)
[2018-09-28] MEDS ORDERED: BUMETANIDE 1 MG TABLET PO SCH (09:00)
[2018-09-28] MEDS ORDERED: FLUTICASONE 50MCG/NASAL SPRAY 16GM BOTTLE. NS PRN (09:00)
[2018-09-28] MEDS ORDERED: POLYETHYLENE GLYCOL 3350 17 GM PACKET. PO PRN (09:00)
[2018-09-28] MEDS: MEROPENEM 1 GM in IV NORMAL SALINE 100ML 100 ML IV SCH ×2 (09:33→21:09)
[2018-09-28] MEDS: VITS A & D/LANOLIN TOPICAL OINTMENT 56GM TUBE. TP SCH ×2 (09:33→21:11)
[2018-09-28] MEDS: ASCORBIC ACID 500 MG TABLET PO SCH ×2 (09:33→21:10)
[2018-09-28] MEDS: LACTOBACILLUS RHAMNOSUS GG 1 CAPSULE. PO SCH ×2 (09:33→21:10)
[2018-09-28] MEDS: RIVAROXABAN 15 MG TABLET. PO SCH (09:34)
[2018-09-28] MEDS: MULTIVITAMIN with MINERAL TABLET. PO SCH (09:34)
[2018-09-28] MEDS: PANTOPRAZOLE 40 MG TABLET. PO SCH (09:34)
[2018-09-28] MEDS: LIDOCAINE (700MG/PATCH) PATCH. TD SCH (09:34)
[2018-09-28] MEDS: BUDESONIDE 3 MG CAP.ER.24H. PO SCH (09:35)
[2018-09-28] MEDS: DICLOFENAC SODIUM 1% TOPICAL GEL 100GM TUBE. TP SCH ×4 (09:38→21:11)
[2018-09-28 10:14] VITALS: BP 110/66
[2018-09-28] MEDS: ONDANSETRON ODT 4 MG TAB.RAPDIS PO PRN (10:32)
[2018-09-28 14:29] VITALS: BP 106/64
[2018-09-28] MEDS ORDERED: IRON SUCROSE COMPLEX 200 MG in IV NORMAL SALINE 100ML 100 ML IV ONE (14:30)
[2018-09-28] MEDS: ALBUMIN HUMAN 25% 50 ML IV SCH ×2 (15:25→22:20)
[2018-09-28 19:25] VITALS: BP 122/74
[2018-09-28] MEDS: GABAPENTIN 300 MG CAPSULE. PO SCH (21:10)
[2018-09-29] VITALS (12 sets, daily range): BP systolic 105–142; BP diastolic 59–80
[2018-09-29] MEDS: ALBUMIN HUMAN 25% 50 ML IV SCH ×3 (06:28→23:17)
[2018-09-29 07:09] LABS: CALCIUM 8.3 mg/dL (8.5-10.1); CREATININE 1.2 mg/dL (0.6-1.0); GFR 42.9; MAGNESIUM 1.9 mg/dL (1.8-2.4); POTASSIUM 4.2 mmol/L (3.5-5.1)
[2018-09-29] MEDS: ASCORBIC ACID 500 MG TABLET PO SCH ×2 (08:12→20:33)
[2018-09-29] MEDS: MULTIVITAMIN with MINERAL TABLET. PO SCH (08:12)
[2018-09-29] MEDS: PANTOPRAZOLE 40 MG TABLET. PO SCH (08:12)
[2018-09-29] MEDS: RIVAROXABAN 15 MG TABLET. PO SCH (08:12)
[2018-09-29] MEDS: LACTOBACILLUS RHAMNOSUS GG 1 CAPSULE. PO SCH ×2 (08:12→20:32)
[2018-09-29] MEDS: LIDOCAINE (700MG/PATCH) PATCH. TD SCH (08:13)
[2018-09-29] MEDS: BUDESONIDE 3 MG CAP.ER.24H. PO SCH (08:14)
[2018-09-29] MEDS: DICLOFENAC SODIUM 1% TOPICAL GEL 100GM TUBE. TP SCH ×4 (08:15→20:33)
[2018-09-29] MEDS: VITS A & D/LANOLIN TOPICAL OINTMENT 56GM TUBE. TP SCH ×2 (08:15→20:33)
[2018-09-29] MEDS: MEROPENEM 1 GM in IV NORMAL SALINE 100ML 100 ML IV SCH ×2 (09:53→21:48)
--- NOTE | 2018-09-29 10:51 | PN ---
DATE: 09/28/2018 SUBJECTIVE: The patient is resting slightly propped up in bed, in no apparent distress. She is very lethargic, not feeling well. Her legs are markedly swollen and erythematous. She is complaining of being tremulous. Her appetite is very poor. OBJECTIVE: GENERAL: When I examined her this afternoon, she was slightly pale, but no jaundice, cyanosis, lymphadenopathy or thyromegaly. No jugular venous distention, but generalized anasarca. VITAL SIGNS: Her heart rate was 97, blood pressure was 110/66, temperature was 98, respiratory rate was 20, and oxygen saturation was 93% on 2 liters of oxygen. HEAD, EYES, EARS, NOSE AND THROAT: Showed she is normocephalic, atraumatic. Definitely cushingoid. NECK: Supple. HEART: Showed normal first and second sounds. No gallop, rub or murmur. CHEST: Clear to auscultation. No crepitation or rhonchi. ABDOMEN: Distended, soft, nontender. NEUROLOGIC: She was somewhat lethargic, but arousable. All her cranial nerves intact. She moves upper extremities to much good extent than lower extremities. She is mostly bedbound, chair bound. She apparently has multiple wounds in both gluteal areas. She has an indwelling Lopez catheter. Her intake over the last 24 hours was 1638, no output was recorded. LABORATORY DATA: Her lab work this morning showed a white cell count of 8800, hemoglobin 8.4, hematocrit 27.4, MCV 88 and platelet count 174,000. Her chemistry showed a serum sodium of 143, potassium 4.4, chloride 108, bicarbonate 30, anion gap of 5, BUN 23, creatinine 1.1, estimated GFR was 47 mL per minute. Her glucose was 104, calcium was 8.2. Total bilirubin, AST, ALT were normal. Alkaline phosphatase slightly elevated. Total protein was 5.5, albumin was 2. ASSESSMENT: 1. Urinary tract infection. 2. Bilateral lower extremity cellulitis. 3. Healthcare-associated pneumonia. 4. Crohn's disease. PLAN: My plan is to continue with the IV antibiotic in the form of meropenem as well as Zyvox. We will continue with all her other medications. I will start her on 25% human albumin as well as Venofer. LOREN HILARIO MD DR: Keyur JOB#: [id number] / [id number]
[2018-09-29] MEDS ORDERED: VANCOMYCIN PER PHARMACY MC PRN (13:30)
[2018-09-29 13:52] LABS: BGAS PH 7.22 (7.35-7.45)
[2018-09-29] MEDS ORDERED: VANCOMYCIN 2 GM in IV NORMAL SALINE 500ML 500 ML IV ONE ×3 (14:00→15:30)
[2018-09-29 16:30] LABS: BGAS PH 7.23 (7.35-7.45)
--- NOTE | 2018-09-29 20:18 | PN ---
DATE: 09/29/2018 SUBJECTIVE: The patient is resting, slightly propped up in bed, in no apparent distress, very lethargic. She seemed to have twitching in her lips and hands and concerned that she has serotonin syndrome, as we started her yesterday on Zyvox and we discontinued her sertraline and mirtazapine. It may be that is to the half life is long and they interacted with Zyvox, so I discontinued Zyvox altogether. I will consult with the pharmacy to adjust the dose of vancomycin as she has bilateral lower extremity cellulitis, UTI and also questionable healthcare-associated pneumonia. PHYSICAL EXAMINATION: GENERAL: When I saw her this afternoon, she looked well and was clearly in no apparent respiratory distress, pale, but no jaundice, cyanosis, or thyromegaly. No jugular venous distension. Bilateral lower limb edema. VITAL SIGNS: Her heart rate was 113, blood pressure was 135/73, temperature was 98.6, respiratory rate 20, and oxygen saturation was 92% on 3 liters of oxygen. HEAD, EYES, EARS, NOSE AND THROAT: Showed normocephalic, atraumatic. NECK: Supple. HEART: Showed normal first and second sounds. No gallop, rub or murmur. CHEST: Clear to auscultation. No crepitation or rhonchi. ABDOMEN: Distended, soft, nontender. NEUROLOGIC: She was very lethargic, but arousable. She opens eyes and responds appropriately. Her cranial nerves are intact. She moves upper extremities to much good extent than lower extremities. She has wounds in her right hand, heel, and bilateral gluteal areas. Her intake over the last 24 hours was 1640. No output was recorded. LABORATORY DATA: As of yesterday showed a white cell count of 8800, hemoglobin 8.4, hematocrit 27.4, MCV 88 and platelet count 274,000. Serum sodium 141, potassium 4.2, chloride 105, bicarbonate 31, anion gap of 5, BUN 24, creatinine 1.2, estimated GFR was 42 mL per minute. Her glucose was 134, calcium was 8.3, magnesium was 1.9. ASSESSMENT: This is an 83-year-old female patient who was admitted with: 1. Altered mental status, generalized weakness and lethargy, was diagnosed with urinary tract infection. 2. Bilateral lower extremity cellulitis. 3. Healthcare-associated pneumonia. 4. Crohn's disease. 5. Multiple wounds involving right hand, left heel and bilateral gluteal areas. 6. Questionable serotonin syndrome. PLAN: My plan is to discontinue IV Zyvox, switch her to IV vancomycin. Continue with IV meropenem. Continue with 25% human albumin as well as Venofer. I will check also her blood gases to make sure that is not retaining carbon dioxide as part of her altered mental status. LOREN HILARIO MD DR: JAQUELIN/rhys JOB#: [id number] / [id number]
[2018-09-29] MEDS: POTASSIUM CL 20MEQ D5-0.45NACL 1,000 ML IV SCH (20:29)
[2018-09-29] MEDS: GABAPENTIN 300 MG CAPSULE. PO SCH (20:33)
[2018-09-29] MEDS ORDERED: LINEZOLID 600 MG TABLET PO SCH (21:00)
[2018-09-29 21:37] LABS: BGAS PH 7.31 (7.35-7.45)
[2018-09-29] MEDS: HYDROCORTISONE SOD SUCC/PF 100 MG/2 ML VIAL. IV SCH (21:48)
[2018-09-30] VITALS (24 sets, daily range): BP systolic 102–153; BP diastolic 47–85
[2018-09-30] MEDS: ALBUMIN HUMAN 25% 50 ML IV SCH ×4 (05:35→22:55)
[2018-09-30] MEDS: HYDROCORTISONE SOD SUCC/PF 100 MG/2 ML VIAL. IV SCH ×3 (05:36→21:50)
[2018-09-30 06:36] LABS: HEMOGLOBIN 7.6 g/dL (12.0-15.5); RED BLOOD COUNT 2.81 x10^6/uL (3.50-5.40); RED CELL DISTRIBUTION WIDTH 24.8 % (11.5-14.5); WHITE BLOOD COUNT 6.2 x10^3/uL (4.0-11.0)
[2018-09-30 06:52] LABS: ALBUMIN 2.5 g/dL (3.4-5.0); ALBUMIN/GLOBULIN RATIO 0.8 (1.0-1.7); C REACTIVE PROTEIN 87.4 mg/L (0-3.3); CALCIUM 7.9 mg/dL (8.5-10.1); POTASSIUM 4.5 mmol/L (3.5-5.1); TOTAL BILIRUBIN 0.3 mg/dL (0.2-1.0); TOTAL PROTEIN 5.6 g/dL (6.4-8.2)
[2018-09-30 06:53] LABS: BGAS PH 7.3 (7.35-7.45)
[2018-09-30] MEDS: ONDANSETRON ODT 4 MG TAB.RAPDIS PO PRN (08:28)
[2018-09-30] MEDS: LIDOCAINE (700MG/PATCH) PATCH. TD SCH (08:35)
[2018-09-30] MEDS: PANTOPRAZOLE 40 MG TABLET. PO SCH (08:35)
[2018-09-30] MEDS: ASCORBIC ACID 500 MG TABLET PO SCH ×2 (08:35→20:08)
[2018-09-30] MEDS: LACTOBACILLUS RHAMNOSUS GG 1 CAPSULE. PO SCH ×2 (08:35→20:07)
[2018-09-30] MEDS: MULTIVITAMIN with MINERAL TABLET. PO SCH (08:35)
[2018-09-30] MEDS: RIVAROXABAN 15 MG TABLET. PO SCH (08:35)
[2018-09-30] MEDS: DICLOFENAC SODIUM 1% TOPICAL GEL 100GM TUBE. TP SCH ×4 (08:48→22:55)
[2018-09-30] MEDS: VITS A & D/LANOLIN TOPICAL OINTMENT 56GM TUBE. TP SCH ×2 (08:48→20:39)
[2018-09-30] MEDS: BUDESONIDE 3 MG CAP.ER.24H. PO SCH (09:00)
[2018-09-30] MEDS: MEROPENEM 1 GM in IV NORMAL SALINE 100ML 100 ML IV SCH ×2 (10:54→21:50)
[2018-09-30] MEDS ORDERED: VANCOMYCIN 1.25 GM in IV NORMAL SALINE 250ML 250 ML IV SCH (16:00)
[2018-09-30 16:51] LABS: BGAS PH 7.32 (7.35-7.45)
[2018-09-30] MEDS: GABAPENTIN 300 MG CAPSULE. PO SCH (20:07)
[2018-09-30] MEDS: POTASSIUM CL 20MEQ D5-0.45NACL 1,000 ML IV SCH ×2 (20:10→21:47)
--- NOTE | 2018-09-30 22:11 | PN ---
DATE: 09/30/2018 SUBJECTIVE: The patient is resting, slightly propped up in bed, in no apparent distress. She is definitely more awake, alert, responding appropriately, although she is somewhat seemed to be confused and perhaps hallucinating. She told her brother came from [facility] and brought her Janak which not happened. Her repeat blood gases this morning showed that her blood gases are definitely much improved, although she is still somewhat acidotic. Her pH was 7.30, pCO2 of 57, pO2 is much improved to 94 and oxygen saturation was 96% on BiPAP machine. PHYSICAL EXAMINATION: GENERAL: When I examined her, she looked well and was clearly in no apparent respiratory distress. She was pale, but no jaundice or cyanosis. No lymphadenopathy, no thyromegaly, no jugular venous distension; mild bilateral lower limb edema. VITAL SIGNS: Her heart rate was 86, blood pressure was 140/68, temperature was 98.3, respiratory rate 20 and oxygen saturation was 98% on BiPAP machine. HEENT: Examination of the head, eyes, ears, nose and throat showed normocephalic, atraumatic. NECK: Supple. HEART: Showed normal first and second heart sounds with no gallop, rub or murmur. CHEST: Clear to auscultation. No crepitation or rhonchi. ABDOMEN: Distended, soft, nontender. NEUROLOGIC: She is definitely more awake, alert. She recognized me immediately today. All her cranial nerves are intact. EXTREMITIES: She moves upper extremities to much good extent than lower extremities. She is mostly bed bound. She has multiple wounds on both gluteal areas, right arm and left heel. Her intake over the last 24 hours was 1383 and output was 700. LABORATORY DATA: Her lab work this morning showed a white cell count 6200, hemoglobin 7.6, hematocrit 25, MCV 89 and a platelet count of 221,000. Her chemistry showed a serum sodium 143, potassium 4.5, chloride 106, bicarbonate 29, anion gap of 8, BUN 21, creatinine 1, estimated GFR was 53 mL per minute. Her glucose 141, calcium was 7.9. Her total bilirubin, AST, ALT, alkaline phosphatase were normal. Her ammonia was less than 10. Her C-reactive protein was high at 87. Total protein was 5.6, albumin was 2.5. Her prothrombin time was 11.9, INR 1.2. Her blood gases showed a pH of 7.30, pCO2 of 57 pO2 of 94, bicarbonate 28, and oxygen saturation was 96%. Her urine showed a large amount of leukocyte esterase and too numerous to count WBCs. Her urine culture has grown greater than 100,000 colony forming units per mL of Proteus mirabilis and sensitivity is still pending at the time of this dictation. ASSESSMENT: Altered mental status, multifactorial includin. A. Acute hypoxic hypercapnic respiratory failure for which she is now on BiPAP. She is definitely more awake today. B. Bilateral lower extremity cellulitis. C. healthcare-associated pneumonia. D. Urinary tract infection. 2. Crohn's disease. 3. Multiple wounds involving the right hand, left heel and bilateral gluteal areas. 4. Questionable serotonin syndrome. I did discontinue her Zyvox yesterday, switched her to IV vancomycin. We will continue with meropenem. Continue with 25% human albumin as well as Venofer. We will continue with BiPAP machine and repeat her blood gas as needed. She seemed to be much improved today. LOREN HILARIO MD DR: JAQUELIN/rhys JOB#: [id number] / [id number]
[2018-10-01] VITALS (20 sets, daily range): BP systolic 98–139; BP diastolic 45–94
[2018-10-01 05:56] LABS: BGAS PH 7.36 (7.35-7.45)
[2018-10-01 06:01] LABS: HEMATOCRIT 25.8 % (36.0-47.0); HEMOGLOBIN 7.9 g/dL (12.0-15.5)
[2018-10-01 06:10] LABS: CALCIUM 8.1 mg/dL (8.5-10.1); CREATININE 0.9 mg/dL (0.6-1.0); GFR 59.8; POTASSIUM 4.5 mmol/L (3.5-5.1)
[2018-10-01] MEDS: HYDROCORTISONE SOD SUCC/PF 100 MG/2 ML VIAL. IV SCH ×3 (06:37→21:58)
[2018-10-01] MEDS: ALBUMIN HUMAN 25% 50 ML IV SCH ×3 (06:37→22:42)
[2018-10-01] MEDS: DICLOFENAC SODIUM 1% TOPICAL GEL 100GM TUBE. TP SCH ×4 (09:06→21:56)
[2018-10-01] MEDS: VITS A & D/LANOLIN TOPICAL OINTMENT 56GM TUBE. TP SCH ×2 (09:06→21:56)
[2018-10-01] MEDS: LIDOCAINE (700MG/PATCH) PATCH. TD SCH (09:06)
[2018-10-01] MEDS: LACTOBACILLUS RHAMNOSUS GG 1 CAPSULE. PO SCH ×2 (09:07→21:00)
[2018-10-01] MEDS: RIVAROXABAN 15 MG TABLET. PO SCH (09:07)
[2018-10-01] MEDS: MULTIVITAMIN with MINERAL TABLET. PO SCH (09:07)
[2018-10-01] MEDS: BUDESONIDE 3 MG CAP.ER.24H. PO SCH (09:07)
[2018-10-01] MEDS: PANTOPRAZOLE 40 MG TABLET. PO SCH (09:07)
[2018-10-01] MEDS: ASCORBIC ACID 500 MG TABLET PO SCH ×2 (09:11→21:57)
[2018-10-01] MEDS: ONDANSETRON ODT 4 MG TAB.RAPDIS PO PRN (09:21)
[2018-10-01] MEDS: MEROPENEM 1 GM in IV NORMAL SALINE 100ML 100 ML IV SCH ×2 (09:49→21:58)
[2018-10-01] MEDS: POTASSIUM CL 20MEQ D5-0.45NACL 1,000 ML IV SCH (15:01)
[2018-10-01] MEDS ORDERED: BUMETANIDE 1 MG/4 ML VIAL. IVP ONE (17:15)
--- NOTE | 2018-10-01 20:54 | RAD ---
AP portable chest radiograph 10/01/2018 Clinical History: Shortness of breath. Two AP erect portable digital radiographs of the chest were obtained. Comparison study is dated 08/24/2018. The cardiac silhouette is mildly enlarged. The thoracic aorta is tortuous. Prominence of the pulmonary vasculature is seen suggesting mild to moderate CHF. There are small bilateral pleural effusions, right greater than left. No pneumothorax is seen. The osseous structures are unchanged. Impression: Mild to moderate CHF. Electronically signed by: Emmanuel Liu MD (10/01/2018 8:51 PM) [facility]
[2018-10-01] MEDS: GABAPENTIN 300 MG CAPSULE. PO SCH (21:57)
[2018-10-01] MEDS: LINEZOLID 600 MG TABLET PO SCH (21:57)
[2018-10-02] VITALS (11 sets, daily range): BP systolic 98–144; BP diastolic 50–79
--- NOTE | 2018-10-02 00:35 | PN ---
DATE: 10/01/2018 SUBJECTIVE: 1The patient is resting, slightly propped up in bed, clearly slightly tachypneic, but not jaundiced, cyanosis or thyromegaly. No jugular venous distention, but bilateral lower limb edema. PHYSICAL EXAMINATION: VITAL SIGNS: Her heart rate was 93, blood pressure was 137/65, temperature was 98.1, respiratory rate 25, and oxygen saturation was 97% on 2 liters of oxygen. HEAD, EYES, EARS, NOSE AND THROAT: Showed normocephalic, atraumatic. NECK: Supple. HEART: Showed normal first and second sounds. No gallop, rub or murmur. CHEST: Clear to auscultation. No crepitation or rhonchi. ABDOMEN: Distended, soft, nontender. No guarding or rigidity. No organomegaly. All hernial orifices intact. Bowel sounds normal. NEUROLOGIC: She was awake, alert, responding appropriately. All cranial nerves intact. She moves extremities without difficulty, although she is mostly bedbound, chair bound. Her intake over the last 24 hours showed her intake was incompletely recorded, output was 700. LABORATORY DATA: Her lab work showed serum sodium 140, potassium 4.5, chloride 105, bicarbonate 29, anion gap of 6, BUN 23, creatinine was 0.9, estimated GFR was 60 mL per minute. Her glucose was 113, calcium was 8.1. Total bilirubin, AST, ALT, alkaline phosphatase were normal. Her hemoglobin was 7.9, hematocrit 25.8. ASSESSMENT: 1. Acute hypoxic hypercapnic respiratory failure, much improved. Her blood gases showed a pH of 7.36, pCO2 of 50, pO2 of 124, bicarbonate 28 and an oxygen saturation was 99%. 2. Bilateral lower extremity cellulitis. 3. Healthcare-associated pneumonia. 4. Urinary tract infection with growth of more than 100,000 colony forming units per mL of Proteus mirabilis sensitive. 5. She has Crohn's disease. 6. Multiple wounds involving her right hand, left heel and bilateral gluteal areas. 7. She has questionable serotonin syndrome. Therefore, I discontinued her Zyvox and switched her to vancomycin. PLAN: The plan is to discontinue the vancomycin, discontinue the IV fluid. I will continue with the human albumin. Continue with IV meropenem and stopped the Bumex IV 1 mg a day and daily thereafter. I probably switched her to oral Zyvox. LOREN HILARIO MD DR: JAQUELIN/rhys JOB#: [id number] / [id number]
[2018-10-02] MEDS: ALBUMIN HUMAN 25% 50 ML IV SCH (05:42)
[2018-10-02] MEDS: HYDROCORTISONE SOD SUCC/PF 100 MG/2 ML VIAL. IV SCH (05:43)
[2018-10-02 06:28] LABS: BASO % 0 % (0-3); EOS % 0 % (0-3); HEMATOCRIT 26.8 % (36.0-47.0); LYMPH # 0.6 x10^3/uL (1.0-4.8); LYMPH % 9 % (24-48); MEAN CORPUSCULAR HEMOGLOBIN 27 pg (25-35); MEAN CORPUSCULAR HGB CONC 30 g/dL (31-37); MEAN CORPUSCULAR VOLUME 89 fL (79-100); MONO # 0.3 x10^3/uL (0.0-1.1); MONO % 4 % (0-9); NEUT % 87 % (31-73); PLATELET COUNT 234 x10^3/uL (140-400); RED CELL DISTRIBUTION WIDTH 25.6 % (11.5-14.5)
[2018-10-02 06:44] LABS: ALBUMIN 3.4 g/dL (3.4-5.0); ALBUMIN/GLOBULIN RATIO 1.2 (1.0-1.7); CALCIUM 8.4 mg/dL (8.5-10.1); CREATININE 1.1 mg/dL (0.6-1.0); GFR 47.4; POTASSIUM 4.8 mmol/L (3.5-5.1); TOTAL BILIRUBIN 0.2 mg/dL (0.2-1.0); TOTAL PROTEIN 6.3 g/dL (6.4-8.2)
[2018-10-02] MEDS ORDERED: BUMETANIDE 1 MG/4 ML VIAL. IVP SCH (09:00)
[2018-10-02] MEDS: PANTOPRAZOLE 40 MG TABLET. PO SCH (09:17)
[2018-10-02] MEDS: RIVAROXABAN 15 MG TABLET. PO SCH (09:17)
[2018-10-02] MEDS: LINEZOLID 600 MG TABLET PO SCH (09:17)
[2018-10-02] MEDS: ASCORBIC ACID 500 MG TABLET PO SCH (09:17)
[2018-10-02] MEDS: LACTOBACILLUS RHAMNOSUS GG 1 CAPSULE. PO SCH (09:17)
[2018-10-02] MEDS: MULTIVITAMIN with MINERAL TABLET. PO SCH (09:17)
[2018-10-02] MEDS: BUDESONIDE 3 MG CAP.ER.24H. PO SCH (09:17)
[2018-10-02] MEDS: LIDOCAINE (700MG/PATCH) PATCH. TD SCH (09:19)
[2018-10-02] MEDS: VITS A & D/LANOLIN TOPICAL OINTMENT 56GM TUBE. TP SCH (09:48)
[2018-10-02] MEDS: DICLOFENAC SODIUM 1% TOPICAL GEL 100GM TUBE. TP SCH (09:48)
[2018-10-02] MEDS: MEROPENEM 1 GM in IV NORMAL SALINE 100ML 100 ML IV SCH (10:03)
[2018-10-02] MEDS ORDERED: BUMETANIDE 1 MG/4 ML VIAL. IVP ONE (13:00)
[2018-10-02] MEDS ORDERED: IRON SUCROSE COMPLEX 400 MG in IV NORMAL SALINE 250ML 250 ML IV ONE (13:15)
[2018-10-02] MEDS ORDERED: levoFLOXacin 500 MG TABLET PO ONE (14:00)
[2018-10-04] MEDS ORDERED: NON FORMULARY ITEM (Cholecalciferol (Vitamin D3) (Vitamin D3) 50,000 UNIT) PO SCH (09:00)
[2018-10-04] MEDS ORDERED: CHOLECALCIFEROL (VITAMIN D3) 50,000 UNIT CAPSULE PO SCH (09:00)
== END 2018-10-02 16:02 | DRG 871 ==
LOC: ER 11:15 → 1 SOUTH 13:52 → ER 13:52 → 1 SOUTH 13:54 → ICU 09-29 14:41
PROVIDERS: ADMIT Internal Medicine; ATTEND Internal Medicine
PROC: 5A09357 Assistance with Respiratory Ventilation, Less than 24 Consecutive Hours, Continuous Positive Airway Pressure (ICD-10-PCS; principal; 2018-09-27)
PROC: 5A09357 Assistance with Respiratory Ventilation, Less than 24 Consecutive Hours, Continuous Positive Airway Pressure (ICD-10-PCS; 2018-09-30)
PROC: 5A09357 Assistance with Respiratory Ventilation, Less than 24 Consecutive Hours, Continuous Positive Airway Pressure (ICD-10-PCS; 2018-10-01)
DX: A41.9 Sepsis, unspecified organism (principal); J96.01 Acute respiratory failure with hypoxia; J18.9 Pneumonia, unspecified organism; J96.02 Acute respiratory failure with hypercapnia; L03.116 Cellulitis of left lower limb; J98.11 Atelectasis; K50.90 Crohn's disease, unspecified, without complications; L03.115 Cellulitis of right lower limb; N30.01 Acute cystitis with hematuria; Y95 Nosocomial condition; I25.10 Atherosclerotic heart disease of native coronary artery without angina pectoris; F32.9 Major depressive disorder, single episode, unspecified; Z80.9 Family history of malignant neoplasm, unspecified; M19.90 Unspecified osteoarthritis, unspecified site; Z82.3 Family history of stroke; Z82.49 Family history of ischemic heart disease and other diseases of the circulatory system; Z86.718 Personal history of other venous thrombosis and embolism; Z87.440 Personal history of urinary (tract) infections; Z99.3 Dependence on wheelchair; Z86.711 Personal history of pulmonary embolism; Z88.0 Allergy status to penicillin; Z88.2 Allergy status to sulfonamides; Z88.8 Allergy status to other drugs, medicaments and biological substances
CPT/HCPCS: 36415; 71045; 80048; 80053; 81001; 82140; 82803; 83605; 83735; 84484; 85014; 85018; 85025; 85027; 85610; 85651; 86140; 87086; 87186; 87641; 93005; 94640; 94660; 96365; J1756; J2020; J2185; J3370; J3490; J7040; J7050; J7620; P9046; Q0162; 99285-25; J7030

== ENCOUNTER 2018-10-05 16:38 | Inpatient (IN) | payer MEDICARE, OTHER ==
[~2018-10-05] VITALS: Ht 162.6 cm; Wt 82.6 kg
[~2018-10-05 16:38] MED LIST changes: +ASCO500T2 PO; +CHOL-5 PO; +GABA300C8 PO; +IPRA3AMP29 NEB; +LACT1CAP2 PO; +POLY17PO5 PO; +VITS42.55 TP
[2018-10-05 17:05] VITALS: BP 117/69
[2018-10-05] MEDS ORDERED: ACETAMINOPHEN 500 MG TABLET PO PRN (17:30)
[2018-10-05] MEDS ORDERED: LOPERAMIDE 2 MG CAPSULE PO PRN (17:30)
[2018-10-05] MEDS ORDERED: ONDANSETRON ODT 4 MG TAB.RAPDIS PO PRN (17:30)
[2018-10-05] MEDS ORDERED: TRIAMCINOLONE ACETONIDE 0.1% TOPICAL CREAM 15GM TUBE. TP PRN (17:30)
[2018-10-05 17:39] LABS: BASO % 1 % (0-3); EOS # 0.1 x10^3/uL (0.0-0.7); EOS % 1 % (0-3); HEMATOCRIT 25.7 % (36.0-47.0); HEMOGLOBIN 7.9 g/dL (12.0-15.5); LYMPH # 1.1 x10^3/uL (1.0-4.8); LYMPH % 13 % (24-48); MEAN CORPUSCULAR HEMOGLOBIN 27 pg (25-35); MEAN CORPUSCULAR HGB CONC 31 g/dL (31-37); MEAN CORPUSCULAR VOLUME 88 fL (79-100); MONO # 0.6 x10^3/uL (0.0-1.1); MONO % 7 % (0-9); NEUT # 6.6 x10^3uL (1.8-7.7); NEUT % 78 % (31-73); PLATELET COUNT 174 x10^3/uL (140-400); RED BLOOD COUNT 2.91 x10^6/uL (3.50-5.40); RED CELL DISTRIBUTION WIDTH 25.6 % (11.5-14.5); WHITE BLOOD COUNT 8.5 x10^3/uL (4.0-11.0)
[2018-10-05 17:51] LABS: ALBUMIN 2.7 g/dL (3.4-5.0); CALCIUM 7.9 mg/dL (8.5-10.1); CREATININE 1.1 mg/dL (0.6-1.0); GFR 47.4; POTASSIUM 3.6 mmol/L (3.5-5.1); TOTAL BILIRUBIN 0.4 mg/dL (0.2-1.0); TOTAL PROTEIN 5.5 g/dL (6.4-8.2)
[2018-10-05 19:30] VITALS: BP 126/73
[2018-10-05 19:44] LABS: BACTERIA,URINE FEW /HPF (0-FEW); BILIRUBIN,URINE NEG (NEG); CLARITY,URINE CLOUDY; COLOR,URINE STRAW; GLUCOSE,URINE NEG (NEG); NITRITE,URINE NEG (NEG); UROBILINOGEN,URINE 0.2 mg/dL (0.2 mg/dL); WBC,URINE TNTC /HPF (0-4)
[2018-10-05] MEDS ORDERED: MIRTAZAPINE 30 MG TABLET PO SCH (21:00)
[2018-10-05] MEDS ORDERED: NYSTATIN 100,000 UNIT/GM TOPICAL CREAM 15GM TUBE. TP PRN (21:00)
[2018-10-05] MEDS: LACTOBACILLUS RHAMNOSUS GG 1 CAPSULE. PO SCH (21:45)
[2018-10-05] MEDS: ASCORBIC ACID 500 MG TABLET PO SCH (21:46)
[2018-10-05] MEDS: GABAPENTIN 300 MG CAPSULE. PO SCH (21:46)
[2018-10-05] MEDS: HYDROCORTISONE SOD SUCC/PF 100 MG/2 ML VIAL. IV SCH (21:47)
[2018-10-05] MEDS: DICLOFENAC SODIUM 1% TOPICAL GEL 100GM TUBE. TP SCH (21:47)
[2018-10-05] MEDS: VITS A & D/LANOLIN TOPICAL OINTMENT 56GM TUBE. TP SCH (21:47)
[2018-10-05 22:18] LABS: PLT ESTIMATE ADEQUATE (ADEQUATE); SCHISTOCYTES OCC; STOMATOCYTES OCC
[2018-10-05 22:19] LABS: POLYCHROMASIA SLIGHT
[2018-10-05 23:10] VITALS: BP 144/74
[2018-10-06] MEDS: HYDROCORTISONE SOD SUCC/PF 100 MG/2 ML VIAL. IV SCH ×3 (05:31→21:51)
[2018-10-06 05:50] VITALS: BP 122/77
[2018-10-06] MEDS ORDERED: levoFLOXacin 500 MG TABLET PO SCH (06:00)
[2018-10-06] MEDS: ASCORBIC ACID 500 MG TABLET PO SCH ×2 (09:00→21:07)
[2018-10-06] MEDS: VITS A & D/LANOLIN TOPICAL OINTMENT 56GM TUBE. TP SCH ×2 (09:00→21:00)
[2018-10-06] MEDS: DICLOFENAC SODIUM 1% TOPICAL GEL 100GM TUBE. TP SCH ×4 (09:00→21:00)
[2018-10-06] MEDS: POLYETHYLENE GLYCOL 3350 17 GM PACKET. PO SCH (09:00)
[2018-10-06] MEDS ORDERED: FLUTICASONE 50MCG/NASAL SPRAY 16GM BOTTLE. NS PRN (09:00)
[2018-10-06] MEDS ORDERED: SERTRALINE 100 MG TABLET. PO SCH (09:00)
--- NOTE | 2018-10-06 09:10 | RAD ---
Indication:HYPOXIA AND SHORT OF AIR TECHNIQUE:Portable AP chest X-ray COMPARISON:10/01/2018 FINDINGS: Heart is moderately enlarged in size. Bilateral prominent pulmonary vasculature is seen. No focal consolidation. No pneumothorax or effusion. Visualized bony thorax within normal limits. IMPRESSION: Findings suggests pulmonary vascular congestion. Electronically signed by: Satish Denny DO (10/06/2018 9:07 AM) [facility]
[2018-10-06 11:04] VITALS: BP 127/75
--- NOTE | 2018-10-06 13:13 | RAD ---
PQRS Compliance statement: One or more of the following individualized dose reduction techniques were utilized for this examination: 1. Automated exposure control. 2. Adjustment of the mA and/or kV according to patient size. 3. Use of iterative reconstruction technique. Indication:mental status change TECHNIQUE: CT head without IV contrast COMPARISON:05/04/2017 FINDINGS: No pathologic extra-axial or intra-axial fluid collection. Mild diffuse cerebral atrophy with ex vacuo dilation of the ventricles. The basal cisterns are within normal limits. No acute intracranial bleed. Confluent low-attenuation is seen in the periventricular and deep white matter. No focal loss of woods-white differentiation. Orbits are within normal limits. No suspicious calvarial lesion. Trace amount of fluid is seen in the bilateral sphenoid sinus. Rest of the paranasal sinuses and mastoid air cells are clear. IMPRESSION: 1. No acute intracranial process. If concern for acute ischemic stroke is high, please consider MRI brain. 2. Mild to moderate White matter changes most likely secondary to chronic microvascular ischemic disease. Electronically signed by: Satish Denny DO (10/06/2018 1:09 PM) [facility]
--- NOTE | 2018-10-06 13:49 | RAD ---
Ultrasound venous Doppler INDICATION:BILAT ARM SWELLING/EDEMA TECHNIQUE: Grayscale, color Doppler and spectral waveform ultrasound images of the upper activity deep veins obtained. COMPARISON: None FINDINGS: The interrogated deep veins are compressible and demonstrate evidence of blood flow with normal respiratory variation and response to augmentation. IMPRESSION: No sonographic evidence of acute DVT of the bilateral upper extremity deep veins. Electronically signed by: Satish Denny DO (10/06/2018 1:46 PM) [facility]
--- NOTE | 2018-10-06 14:03 | HP ---
ADMIT DATE: 10/05/2018 HISTORY OF PRESENT ILLNESS: The patient is an 83-year-old female patient, who was actually discharged only recently, specifically on 10/02/2018, and the nursing staff from [facility] called me and stated the patient was very confused, lethargic and has been refusing to eat and therefore, she was admitted directly with altered mental status. On arrival, she did actually recognize me and denied any complaint, in particular denied any chest pain or shortness of breath. Denied any chills, rigors or fever. I have had extensive lab work, which showed in fact that her white cell count, hemoglobin, hematocrit and platelets are within normal range. Her chemistry was also stable apart from slightly elevated sodium 146. She did have an intertriginous candidiasis including the vulvovaginal area as well as the groins. The patient was admitted, was continued on all her other medications including her antibiotic, as we treated her last time with IV Levaquin as well as Zosyn for cellulitis, pneumonia as well as UTI. PAST MEDICAL HISTORY: Significant for Crohn disease, degenerative joint disease, recurrent UTIs, history of deep vein thrombosis and pulmonary embolism, depression. She is known to have L4 compression fracture and was admitted to [facility] where she was found to be not suitable for vertebroplasty by the neurosurgeon, interventional radiologist, and she was admitted to [facility] for recurrent syncopal episode. At that time, she was found to be extremely dehydrated. PAST SURGICAL HISTORY: Significant for appendectomy, cholecystectomy, partial colectomy, colonoscopy and biopsy. ALLERGIES: SHE IS ALLERGIC TO CIPRO, ASPIRIN, CEFDINIR, PENICILLIN, SULFA AND TRAMADOL. FAMILY HISTORY: Positive for hypertension and CVA in her mother, and bone cancer in her father. SOCIAL HISTORY: She is currently at [facility]. She has 2 sons, one of them lives here and the other lives in [place], [place]. She does not smoke, drink alcohol or use recreational drugs. She is mostly bed bound, wheelchair bound. MEDICATIONS: She is currently on following medications: She is on ipratropium bromide/albuterol sulfate 4 times a day, rivaroxaban 15 mg daily. She is on diclofenac sodium ____ topically 4 times a day, Tylenol 1000 mg 3 times a day, gabapentin 300 mg at bedtime, mirtazapine 30 mg at bedtime, sertraline for Zoloft 100 mg daily. She is on Flonase 1 spray to each nostril twice a day, lactobacillus acidophilus 1 capsule twice a day, Loperamide 2 mg p.o. daily p.r.n. for diarrhea. She is on polyethylene glycol 17 grams daily as needed, ondansetron 4 mg every 8 hours, Protonix 40 mg daily, Entocort extended release enteric coated 3 capsules p.o. daily. She is on nystatin cream applied topically 3 times a day and she is on Lidoderm patch applied topically on for 12 hours and off for 12 hours. She is on A&D ointment applied topically twice a day to her sacral wound. She is also on ascorbic acid 500 mg once a day, cholecalciferol 10,000 international unit once a day, multivitamin 1 tablet once a day. PHYSICAL EXAMINATION: GENERAL: On arrival to the hospital, she was resting flat, comfortably in bed, in no apparent distress. She was slightly pale, but no jaundice, cyanosis, or thyromegaly. No jugular venous distension. No limb edema. VITAL SIGNS: Her heart rate was 95, blood pressure was 117/69, temperature was 98.5, respiratory rate 20, and oxygen saturation was 93% on 3-1/2 liters of oxygen. HEAD, EYES, EARS, NOSE AND THROAT: Showed normocephalic, atraumatic. NECK: Supple. HEART: Showed normal first and second heart sounds. No gallop, rub or murmur. CHEST: Clear to auscultation. No crepitation or rhonchi. ABDOMEN: Distended, soft, nontender. No guarding or rigidity. No organomegaly. All hernial orifice intact. Bowel sounds normal. NEUROLOGIC: She was somewhat lethargic, but arousable. All her cranial nerves are intact. She moves upper extremities to much good extent than lower extremities. She is mostly bedbound. SKIN: Examination of the skin showed that she has wounds in her right hand. She has also wounds on both gluteal areas as well as intertriginous candidiasis under her breasts, vulvovaginal and groin area. LABORATORY AND DIAGNOSTIC DATA: We have had lab work done that showed that her white cell count was normal at 8500, hemoglobin 8, hematocrit 25.7, MCV 88 and platelet count of 174,000. Her chemistry showed a serum sodium 146, potassium 3.6, chloride 104, bicarbonate 35, anion gap of 7, BUN 25, creatinine 1.1, estimated GFR was 47 mL per minute. Her glucose was 96, lactic acid was only 0.9, calcium was 7.9. Total bilirubin, AST, ALT, alkaline phosphatase were normal. Lactate dehydrogenase was 170. Total protein was 5.5, albumin was 2.7. Her urinalysis showed the urine was straw-colored, cloudy with a pH of 5, specific gravity 1.020. There is a small amount of protein. The urine was negative for glucose. There was a trace of ketones, moderate amount of blood. She has large amount of leukocyte esterase, 3-5 rbc's, and too numerous to count wbc's. There are a few bacteria. She has had a chest x-ray, which showed that the heart is moderately enlarged in size. Bilateral prominent pulmonary vasculature is seen. No focal consolidation, no pneumothorax or effusion; visualized bony thorax within normal limits. IMPRESSION: Findings suggest pulmonary vascular congestion. I did actually continue all her medications including her antibiotics including Zyvox and Levaquin. Continued on IV hydrocortisone. We will assess her ability to swallow and encourage her to drink water, as she definitely has hypernatremia that at least in part might be contributing to her altered mental status. Otherwise, we will start her on IV D5W, as she has significant water deficit. Meanwhile, we will continue treatment for her UTI as well as her cellulitis, although her redness of both lower extremities has largely subsided. Her both upper extremities are swollen and erythematous. LOREN HILARIO MD DR: JAQUELIN/rhys JOB#: [id number] / [id number]
[2018-10-06] MEDS: PANTOPRAZOLE 40 MG TABLET. PO SCH (14:11)
[2018-10-06] MEDS: LACTOBACILLUS RHAMNOSUS GG 1 CAPSULE. PO SCH ×2 (14:11→21:07)
[2018-10-06] MEDS: IV DEXTROSE 5% 1,000 ML IV SCH (14:11)
[2018-10-06] MEDS: MULTIVITAMIN with MINERAL TABLET. PO SCH (14:11)
[2018-10-06] MEDS: RIVAROXABAN 15 MG TABLET. PO SCH (14:11)
[2018-10-06] MEDS: LIDOCAINE (700MG/PATCH) PATCH. TD SCH (14:12)
[2018-10-06 15:39] VITALS: BP 126/75
[2018-10-06 19:15] VITALS: BP 133/79
[2018-10-06] MEDS: GABAPENTIN 300 MG CAPSULE. PO SCH (21:07)
--- NOTE | 2018-10-06 21:42 | PN ---
DATE: 10/06/2018 SUBJECTIVE: The patient is resting, slightly propped up in bed, in no apparent distress. She is definitely more awake, alert, very confused, disoriented, wondering why she is here. I explained to her multiple times that she was discharged back to [facility], doing very well and there she basically came back because she is not eating or drinking. She is very confused. She did complain of being thirsty and we offered her water multiple times as her sodium was high. I did order CT scan of the head. As her both upper extremities seemed to be more swollen than her lower extremities, I ordered a venous Doppler ultrasound of both upper extremities. Fortunately, the CT scan of the head was unremarkable and showed no acute intracranial process with mild to moderate white matter changes most likely secondary to chronic microvascular ischemic disease. Did have bilateral upper extremity venous Doppler ultrasound that shows no sonographic evidence of acute DVT with bilateral upper extremity deep veins. Her lab work showed that her sodium was high and therefore, we started her on D5W at 75 mL per hour. PHYSICAL EXAMINATION: GENERAL: When I examined her this afternoon, she was definitely more awake, but definitely confused, asking the same question multiple times, disoriented in time, place and person. She was pale, but no jaundice, cyanosis, or thyromegaly. No jugular venous distension. No limb edema. VITAL SIGNS: Her heart rate was 93, blood pressure was 137/75, temperature was 98, respiratory rate 20, and oxygen saturation was 98%. HEAD, EYES, EARS, NOSE AND THROAT: Normocephalic, atraumatic. NECK: Supple. HEART: Showed normal first and second heart sounds with no gallop, rub or murmur. CHEST: Clear to auscultation. No crepitation or rhonchi. ABDOMEN: Distended, soft, nontender. No guarding or rigidity. No organomegaly. Hernial orifice intact. Bowel sounds normal. NEUROLOGIC: She is awake, alert, but very confused. All her cranial nerves are intact. She moves upper extremities to greater extent than lower extremity. She is mostly bedbound. She has wounds on her right upper extremity as well as both gluteal areas. Both upper extremities seemed to be more swollen than the lower extremities; however, there is no evidence of deep vein thrombosis. ASSESSMENT AND PLAN: Plan is to continue with IV antibiotic in the form of Levaquin and Zyvox, as she has multitude of allergies. Her urinalysis continued to show large amount of the leukocyte esterase and too numerous to count wbc's. The cellulitis of the lower extremities has resolved; however, both upper extremities seemed to be markedly swollen and erythematous. I will repeat all her lab work tomorrow. We will consult the wound care team to evaluate and assist with her management. LOREN IHLARIO MD DR: JAQUELIN/rhys JOB#: [id number] / [id number]
[2018-10-06 23:04] VITALS: BP 104/55
[2018-10-07] MEDS: IV DEXTROSE 5% 1,000 ML IV SCH (01:05)
[2018-10-07] MEDS: HYDROCORTISONE SOD SUCC/PF 100 MG/2 ML VIAL. IV SCH ×2 (05:42→14:00)
[2018-10-07 06:29] VITALS: BP 128/73
[2018-10-07] MEDS: ASCORBIC ACID 500 MG TABLET PO SCH (09:00)
[2018-10-07] MEDS: LACTOBACILLUS RHAMNOSUS GG 1 CAPSULE. PO SCH (09:00)
[2018-10-07] MEDS: DICLOFENAC SODIUM 1% TOPICAL GEL 100GM TUBE. TP SCH (09:00)
[2018-10-07] MEDS: PANTOPRAZOLE 40 MG TABLET. PO SCH (09:00)
[2018-10-07] MEDS: LIDOCAINE (700MG/PATCH) PATCH. TD SCH (09:00)
[2018-10-07] MEDS: POLYETHYLENE GLYCOL 3350 17 GM PACKET. PO SCH (09:00)
[2018-10-07] MEDS: MULTIVITAMIN with MINERAL TABLET. PO SCH (09:00)
[2018-10-07] MEDS: RIVAROXABAN 15 MG TABLET. PO SCH (09:00)
[2018-10-07] MEDS: VITS A & D/LANOLIN TOPICAL OINTMENT 56GM TUBE. TP SCH (09:00)
[2018-10-07 10:40] VITALS: BP 161/82
--- NOTE | 2018-10-07 18:04 | PN ---
DATE: 10/07/2018 SUBJECTIVE: The patient is resting, slightly propped up in bed, in no apparent respiratory distress. She denied any shortness of breath. Denied any cough or phlegm. Denied any pain. Unfortunately, her upper extremities are extremely swollen. We attempted to put a peripheral IV and PICC line or Midline and even the PICC line, nurse was unable to place any peripheral IV line. In fact, her upper extremities are markedly swollen. She has also some skin breakdown on her dorsum of the left hand, although venous Doppler ultrasound of both upper extremities was negative for deep vein thrombosis. OBJECTIVE: GENERAL: When I examined her, she was resting slightly propped up in bed, in no apparent distress. She was pale, but no jaundice or cyanosis. No lymphadenopathy or thyromegaly. No jugular venous distension. No lower limb edema. In fact, her both upper extremities are more swollen than the lower extremities. VITAL SIGNS: Her heart rate was 84, blood pressure was 161/82, temperature was 98.4, respiratory rate 22 and oxygen saturation was 97% on 2 liters of oxygen by nasal cannula. HEAD, EYES, EARS, NOSE AND THROAT: Showed normocephalic, atraumatic. NECK: Supple. HEART: Showed normal first and second heart sounds with no gallop, rub or murmur. CHEST: Clear to auscultation. No crepitation or rhonchi. ABDOMEN: Distended, soft, nontender. NEUROLOGIC: She was awake, alert, responding appropriately. All cranial nerves intact. She is mostly bedbound. She has decubitus ulcers in both gluteal areas. She has skin breakdown in her left upper extremity. Both upper extremities are markedly erythematous and swollen. Her intake over the last 24 hours was incompletely recorded, output was 350. LABORATORY DATA: No lab work was done today as we have no vascular access. I contacted the ER physician to place a central line, but he was busy. PLAN: I will contact her granddaughter to see if she want me to transfer her to [facility] as the patient is not doing well and without vascular access, it can be difficult for us to take care of her. LOREN HILARIO MD DR: JAQUELIN/rhys JOB#: [id number] / [id number]
[2018-10-12] MEDS ORDERED: CHOLECALCIFEROL (VITAMIN D3) 50,000 UNIT CAPSULE PO SCH (09:00)
== END 2018-10-07 14:30 | disposition short-term general hospital (02) | DRG 871 ==
LOC: 1 SOUTH 16:38
PROVIDERS: ADMIT Internal Medicine; ATTEND Internal Medicine
DX: A41.9 Sepsis, unspecified organism (principal); G92 Toxic encephalopathy; N39.0 Urinary tract infection, site not specified; L03.115 Cellulitis of right lower limb; E87.0 Hyperosmolality and hypernatremia; K50.90 Crohn's disease, unspecified, without complications; L03.116 Cellulitis of left lower limb; B37.2 Candidiasis of skin and nail; Z80.9 Family history of malignant neoplasm, unspecified; Z82.3 Family history of stroke; Z82.49 Family history of ischemic heart disease and other diseases of the circulatory system; Z86.718 Personal history of other venous thrombosis and embolism; Z87.440 Personal history of urinary (tract) infections; Z99.3 Dependence on wheelchair; Z86.711 Personal history of pulmonary embolism; F32.9 Major depressive disorder, single episode, unspecified; M19.90 Unspecified osteoarthritis, unspecified site
CPT/HCPCS: 36415; 70450; 71045; 80053; 81001; 83605; 83615; 85025; 87086; 87641; 93970; J1956; J2020